=== PATIENT | male | born 1970 | race Hispanic/Latino ===

== ENCOUNTER → 2018-01-19 | Outpatient (CLI) | payer OTHER ==
[2018-01-19 13:11] LABS: CREATININE, SERUM 1.37 mg/dL (0.72-1.25)
--- NOTE | 2018-01-19 14:03 | Diagnostic Imaging Report ---
PROCEDURE: CT ABDOMEN AND PELVIS WITH CONTRAST TECHNIQUE: The abdomen and pelvis were scanned utilizing a multidetector helical scanner from the diaphragm to the lesser trochanter after the IV administration of 100 cc of Isovue 370 and the oral administration of water. Coronal and sagittal multiplanar reformations were obtained. COMPARISON: None. INDICATIONS: UPPER ABDOMINAL PAIN FINDINGS: LOWER THORAX: Mild cardiomegaly. Lung bases are clear.. HEPATOBILIARY: No focal hepatic lesions. No biliary ductal dilatation. Gallbladder is unremarkable. SPLEEN: No splenomegaly. Small splenule along the lower pole. PANCREAS: No focal masses or ductal dilatation. ADRENALS: No adrenal nodules. KIDNEYS/URETERS: No hydronephrosis, stones, or solid mass lesions. PELVIC ORGANS/BLADDER: Urinary bladder, prostate, and seminal vesicles appear normal. PERITONEUM / RETROPERITONEUM: No free air or fluid. LYMPH NODES: No pelvic sidewall, retroperitoneal, or mesenteric lymphadenopathy. VESSELS: The abdominal aorta, major branch vessels, and iliac arterial systems are well-visualized and patent. Right hepatic artery is replaced to the superior mesenteric artery. 2 right renal arteries and a single left renal artery. GI TRACT: The large bowel shows no evidence of distention or wall thickening. There are a few diverticula along the sigmoid colon without wall thickening or adjacent inflammatory change. The appendix is normal. Incidental note of a 9 mm lipoma in the fourth portion of the duodenum. No small bowel dilatation to suggest obstruction. BONES AND SOFT TISSUES: Small fat-containing left inguinal hernia. Small fat containing ventral umbilical hernia. No additional focal soft tissue abnormalities. No osseous destructive lesions. Multilevel degenerative disc changes and degenerative facet arthropathy of the thoracolumbar spine. 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 IMPRESSION: No acute intra-abdominal or pelvic CT abnormalities. Large bowel diverticulosis without evidence of diverticulitis. Incidental note of 9 mm lipoma in the fourth portion of the duodenum. No evidence of bowel obstruction. Dictated by: Lucio Chan M.D. on 01/19/2018 at 14:06 Electronically approved by: Lucio Chan M.D. on 01/19/2018 at 14:06
== END ==
LOC: CT 12:21
PROVIDERS: ATTEND Surgery
DX: K82.8 Other specified diseases of gallbladder (principal)
CPT/HCPCS: 36415; 74177; 82565; 84520

== ENCOUNTER → 2018-02-01 | Day surgery (SDC) | payer OTHER ==
[2018-01-29 16:25] LABS: BASOPHILS % 0.3 % (0.0-1.0); EOSINOPHILS # (AUTO) 0.2 (0.0-0.4); HEMATOCRIT 52.9 % (38.2-49.6); HEMOGLOBIN 18.4 g/dL (14.0-18.0); LYMPHOCYTES # (AUTO) 1.8 (1.0-3.2); LYMPHOCYTES % 17.7 % (18.0-39.1); MEAN CORPUSCULAR HEMOGLOBIN 29.7 pg (28-32); MEAN CORPUSCULAR HGB CONC 34.8 g/dL (31-35); MEAN CORPUSCULAR VOLUME 85.3 fL (81-99); MONOCYTES # (AUTO) 0.8 (0.2-0.8); MONOCYTES % 7.9 % (4.4-11.3); NEUTROPHILS # (AUTO) 7.3 (2.1-6.9); NEUTROPHILS % 71.6 % (38.7-80.0); PLATELET COUNT 247 x10e3/uL (140-360); RED CELL DISTRIBUTION WIDTH 12.3 % (11.7-14.4)
[2018-01-29 17:01] LABS: INR 1.58; PROTHROMBIN TIME 17.7 seconds (11.9-14.5)
[2018-01-29 17:06] LABS: ALBUMIN 3.8 g/dL (3.5-5.0); CALCIUM 9.7 mg/dL (8.4-10.2); CREATININE, SERUM 1.39 mg/dL (0.72-1.25)
[~2018-02-01] VITALS: Ht 170.2 cm; Wt 114.3 kg
[2018-02-01] VITALS (7 sets, daily range): BP systolic 105–162; BP diastolic 47–115
[~2018-02-01] MED LIST: ASPIR 8181 MG PO; BENZOCAINE 20% SPR 60 ML CAN ONE; COZAAR25 MG PO; DIGOXIN250 MCG PO; FENTANYL CITRATE/PF 100MCG/2 ML INJ ONE; HYDRALAZINE HCL25 MG PO; INSULIN REGULAR, HUMAN 100 UNIT/1 ML 3ML VIAL ONE; ISOSORBIDE MONO30 MG PO; LASIX40 MG PO; LIPITOR20 MG PO; METFORMIN HCL500 MG PO; MIDAZOLAM HCL 2 MG/2 ML VIAL ONE; PANTOPRAZOLE SO40 MG PO; PROPOFOL IV EMULSION 10 MG/ML 20 ML VIAL ONE; SPIRONOLACTONE25 MG PO; XARELTO20 MG PO
--- NOTE | 2018-02-01 15:34 | Cardiology Report ---
DATE OF STUDY: PROCEDURE: Transesophageal echocardiogram direct current cardioversion. REASON FOR PROCEDURE: Atrial fibrillation. PROCEDURE IN DETAIL: The risks and benefits of the procedure were explained to the patient. He was brought to the endoscopy suite in a fasting state after written informed consent was obtained. Moderate sedation was performed by anesthesia. JERSON was performed demonstrating no evidence of left atrial appendage thrombus or thrombus in the left atrium. The patient was confirmed to have taken his Xarelto as scheduled. The pads were applied in the anterior and posterior approach. One synchronized biphasic shock of 100 joules was given with successful zoroastrian of sinus rhythm with rare PACs. There were no immediate post procedure complications. Patient remained in sinus rhythm and was transferred to recovery. A 12-lead EKG was ordered. IMPRESSION: Successful direct current cardioversion with zoroastrian of sinus rhythm from atrial fibrillation with no immediate complications. Job#: [id number] AMNA
== END | disposition home or self-care (01) ==
LOC: OR 10:23
PROVIDERS: ATTEND Internal Medicine
DX: I48.91 Unspecified atrial fibrillation (principal); Z79.01 Long term (current) use of anticoagulants; I50.22 Chronic systolic (congestive) heart failure; E78.5 Hyperlipidemia, unspecified; K74.60 Unspecified cirrhosis of liver; E11.9 Type 2 diabetes mellitus without complications
CPT/HCPCS: 36415; 80053; 82948; 85025; 85610; 93005; 93307; 93312; 93325; J2250

== ENCOUNTER → 2018-05-30 | Day surgery (SDC) | payer OTHER ==
[~2018-05-30] VITALS: Ht 170.2 cm; Wt 114.3 kg
[2018-05-30] VITALS (8 sets, daily range): BP systolic 144–182; BP diastolic 85–148
[~2018-05-30] MED LIST changes: -BENZOCAINE 20% SPR 60 ML CAN ONE; +HEPARIN SOD (PORCINE) 1000 UNIT/ML 30ML ONE; +HEPARIN SOD/SOD CHLORIDE 2,000 ML ONE; -INSULIN REGULAR, HUMAN 100 UNIT/1 ML 3ML VIAL ONE; +IOPAMIDOL 370 MG/ML 200 ML INFUS..BTL INJ ONE; +LIDOCAINE HCL 2% LOCAL 20 ML VIAL ONE; +NITROGLYCERIN/D5W 200 MCG/ML 250 ML ONE; -PROPOFOL IV EMULSION 10 MG/ML 20 ML VIAL ONE; +SODIUM CHLORIDE 0.9% 1000ML 1,000 ML ONE; +VERAPAMIL HCL 2.5 MG/ML 2 ML VIAL ONE
[2018-05-30 07:52] LABS: BASOPHILS % 0.4 % (0.0-1.0); EOSINOPHILS # (AUTO) 0.4 (0.0-0.4); EOSINOPHILS % 4.2 % (0.0-6.0); HEMATOCRIT 52.8 % (38.2-49.6); HEMOGLOBIN 18.9 g/dL (14.0-18.0); LYMPHOCYTES % 24.2 % (18.0-39.1); MEAN CORPUSCULAR HEMOGLOBIN 31.6 pg (28-32); MEAN CORPUSCULAR HGB CONC 35.8 g/dL (31-35); MEAN CORPUSCULAR VOLUME 88.3 fL (81-99); MONOCYTES # (AUTO) 0.7 (0.2-0.8); MONOCYTES % 8.2 % (4.4-11.3); NEUTROPHILS # (AUTO) 5.3 (2.1-6.9); NEUTROPHILS % 62.6 % (38.7-80.0); PLATELET COUNT 251 x10e3/uL (140-360); RED BLOOD COUNT 5.98 x10e6/uL (4.3-5.7); RED CELL DISTRIBUTION WIDTH 12.6 % (11.7-14.4)
[2018-05-30 08:05] LABS: INR 0.9
[2018-05-30 08:10] LABS: ALANINE AMINOTRANSFERASE 27 IU/L (0-55); ALBUMIN 4.6 g/dL (3.5-5.0); ALBUMIN/GLOBULIN RATIO 1.1 (0.8-2.0); ALKALINE PHOSPHATASE 78 IU/L (40-150); ANION GAP 16.5 mmol/L (8-16); BLOOD UREA NITROGEN 12 mg/dL (7-26); BUN/CREATININE RATIO 12 (6-25); CALCIUM 9.8 mg/dL (8.4-10.2); CARBON DIOXIDE 26 mmol/L (22-29); CHLORIDE 98 mmol/L (98-107); CREATININE, SERUM 1.02 mg/dL (0.72-1.25); EST GLOMERULAR FILTRATION RATE > 60 ML/MIN (60-); GLUCOSE 278 mg/dL (74-118); POTASSIUM 3.5 mmol/L (3.5-5.1); SODIUM 137 mmol/L (136-145)
--- NOTE | 2018-05-30 11:36 | Operative Report ---
DATE OF PROCEDURE: May 30, 2018 INDICATIONS FOR THE PROCEDURE: Atypical chest pain and positive stress test. PREPROCEDURE ASSESSMENT: All the diagnostic data was reviewed prior to the procedure. The risks, the benefits, the alternatives of the different sedation methods were discussed with the patient. The patient was deemed to be an appropriate candidate for moderate sedation. Informed consent was obtained prior to the procedure after explaining the risks, the benefits, and the alternatives of the procedure with the patient. All questions were answered. PROCEDURE NOTE: The patient was brought to the cardiac catheterization laboratory in a fasting state. The right wrist was prepped and draped in a sterile fashion. A 6-Panamanian Slender sheath was inserted into the right radial artery using modified Seldinger technique. A 5-Panamanian WebVet diagnostic catheter was used to perform coronary angiography of the left and the right coronary arteries. Multiple orthogonal views were taken. Left heart catheterization was done with the same WebVet diagnostic catheter. All catheters were removed over a wire. Sheath was removed, and TR band was applied. The case ended without any complications. FINDINGS: Left main coronary artery was short, large caliber, no significant CAD. Left anterior descending artery was large caliber, goes to the apex. One large diagonal branch. No significant coronary artery disease. Left circumflex artery was a large, nondominant circ. Two large OM branches without significant coronary artery disease. RCA was a large, dominant RCA with medium-sized PDA and a very large PL branch without significant coronary artery disease. LV end-diastolic pressure was 19. SPECIMEN REMOVED: None. IMPLANTS AND GRAFTS: None. ESTIMATED BLOOD LOSS: 10 mL. COMPLICATIONS: None. FINAL RECOMMENDATIONS 1. Continue optimal medical therapy and risk factor control. 2. Follow up in the office with Dr. Saucedo in 2 weeks post procedure. Job#: [id number]
--- OUTSIDE RECORDS SUMMARY | 2018-06-05 12:30 | XMS REPORT ---
Author Author [facility] Address Unknown Phone Unavailable Care Team Providers Care Head Waiter/Waitress Banquet Name Role Phone Kimberly SOLITARIO Unavailable Unavailable Marjorie BUI Unavailable Unavailable NEELIMA AGUILERA Unavailable Unavailable Problems This patient has no known problems. Allergies, Adverse Reactions, Alerts This patient has no known allergies or adverse reactions. Medications This patient has no known medications. Encounters Start Date/Time End Date/Time Encounter Type Admission Type Attending [facility] Care Department Encounter ID 2017-04-18 00:00:00 2017-04-18 00:00:00 Outpatient [facility] [id number] 2017-03-31 00:00:00 2017-03-31 00:00:00 Outpatient [facility] [id number] 2017-02-28 00:00:00 2017-02-28 00:00:00 Outpatient [facility] [id number] 2017-02-22 09:57:19 2017-02-22 09:57:19 Outpatient [facility] [id number] 2017-02-20 00:00:00 2017-02-20 00:00:00 Outpatient [facility] [id number] Results Test Description Test Time Test Comments Text Results Atomic Results Result Comments JERSON COMPLETE 2018-02-01 15:09:00 [place] [address] Patient Name : CRYSTAL PINON MR #: [id number] : 1970 Age/Sex: 47/M Adm Physician : TANK SOLITARIO MD Admit Date : Location : OR Room/Bed : REPORT: Cardiology Report DATE OF STUDY: PROCEDURE: Transesophageal echocardiogram direct current cardioversion. REASON FOR PROCEDURE: Atrial fibrillation. PROCEDURE IN DETAIL: The risks and benefits of the procedure were explained to the patient. He was brought to the endoscopy suite in a fasting state after written informed consent was obtained. Moderate sedation was performed by anesthesia. JERSON was performed demonstrating no evidence of left atrial appendage thrombus or thrombus in the left atrium. The patient was confirmed to have taken his Xarelto as scheduled. The pads were applied in the anterior and posterior approach. One synchronized biphasic shock of 100 joules was given with successful cheondoism of sinus rhythm with rare PACs. There were no immediate post procedure complications. Patient remained in sinus rhythm and was transferred to recovery. A 12-lead EKG was ordered. IMPRESSION: Successful direct current cardioversion with cheondoism of sinus rhythm from atrial fibrillation with no immediate complications. Job#: [id number] RI Signature Date Dictated By: TANK SOLITARIO MD Transcribed By: EDS on 02/01/18 <Electronically signed by TANK SOLITARIO MD><<Signature on File>>02/18/18 1332 COPY TO: URINALYSIS W/ MICROSCOPIC 2017-12-27 11:18:00 COLOR (BEAKER) (test qksw=903) Yellow CLARITY (BEAKER) (test yztc=422) Clear SPECIFIC GRAVITY UA (BEAKER) (test qwtt=186) 1.027 1.001-1.035 PH UA (BEAKER) (test inmq=946) 6.0 5.0-8.0 PROTEIN UA (BEAKER) (test xona=104) 100 mg/dL Negative GLUCOSE UA (BEAKER) (test ptrs=402) >1000 mg/dL Negative KETONES UA (BEAKER) (test tsfp=008) Trace Negative BILIRUBIN UA (BEAKER) (test pzdi=540) Negative Negative BLOOD UA (BEAKER) (test slld=961) Negative Negative NITRITE UA (BEAKER) (test agpw=224) Negative Negative LEUKOCYTE ESTERASE UA (BEAKER) (test eqnn=090) Negative Negative UROBILINOGEN UA (BEAKER) (test tyng=637) 0.2 mg/dL 0.2-1.0 RBC UA (BEAKER) (test wjdd=353) 1 /HPF WBC UA (BEAKER) (test zqcl=719) 4 /HPF SQUAMOUS EPITHELIAL (BEAKER) (test uonz=603) 1 /HPF SOURCE(BEAKER) (test umdp=2407) Urine, Clean Catch TROPONIN [id number] 10:21:00* Test Item Value Reference Range Comments TROPONIN I (BEAKER) (test adul=613) 0.17 ng/mL 0.00-0.03 Troponin I (TnI) levels must be interpreted in the context of the presenting sym ptoms and the clinical findings. Elevated TnI levels indicate myocardial damage, but are not specific for ischemic heart disease. Elevated TnI levels are seen in patients with other cardiac conditions (including myocarditis and congestive h eart failure), and slight TnI elevations occur in patients with other conditions , including sepsis, renal failure, acidosis, acute neurological disease, and per sistent tachyarrhythmia.[id number] 10:13:00* Test Item Value Reference Range Comments MAGNESIUM (BEAKER) (test tkum=938) 1.8 mg/dL 1.6-2.6 Specimen moderately hemolyzed BASIC METABOLIC [id number] 10:13:00* Test Item Value Reference Range Comments SODIUM (BEAKER) (test sblp=871) 133 meq/L 136-145 POTASSIUM (BEAKER) (test isaa=082) 4.2 meq/L 3.5-5.1 Specimen moderately hemolyzed CHLORIDE (BEAKER) (test uhsd=263) 101 meq/L 98-107 CO2 (BEAKER) (test ahne=104) 21 meq/L 22-29 BLOOD UREA NITROGEN (BEAKER) (test hsgd=154) 17 mg/dL 7-21 CREATININE (BEAKER) (test ffkg=453) 1.24 mg/dL 0.57-1.25 Specimen moderately hemolyzed GLUCOSE RANDOM (BEAKER) (test kykn=669) 360 mg/dL 70-105 CALCIUM (BEAKER) (test ldbv=308) 9.0 mg/dL 8.4-10.2 EGFR (BEAKER) (test nrpt=7710) 62 mL/min/1.73 sq m INSUFFICIENT CLINICAL DATA TO CALCULATE ESTIMATED GFR. RAD, CHEST, 1 VIEW, NON [id number] 10:07:00Reason for exam:->sobShould this be performed at the bedside?->YesFINAL REPORT Chest 2 views AP 12/27/2017 10:07 AM CLINICAL HISTORY: sob COMPARISON: None available FINDINGS: The lungs are clear. Cardiomediastinal contours are within normal limits. The central pulmonary vasculature is not engorged. IMPRESSION: Unremarkable frontal chest radiograph. Signed: John Morrison Verified Date/Time: 12/27/2017 10:07:36 Reading Location: [facility] Radiology Reading Room B-TYPE NATRIURETIC FACTOR (BNP)2017-12-27 10:04:00* Test Item Value Reference Range Comments B-TYPE NATRIURETIC PEPTIDE (BEAKER) (test uknr=842) 235 pg/mL 0-100 CBC W/PLT COUNT & AUTO [id number] 09:44:00* Test Item Value Reference Range Comments WHITE BLOOD CELL COUNT (BEAKER) (test sbcf=237) 11.4 K/ L 3.5-10.5 RED BLOOD CELL COUNT (BEAKER) (test jsfn=112) 5.62 M/ L 4.63-6.08 HEMOGLOBIN (BEAKER) (test adza=704) 16.6 GM/DL 13.7-17.5 HEMATOCRIT (BEAKER) (test tjnj=753) 50.8 % 40.1-51.0 MEAN CORPUSCULAR VOLUME (BEAKER) (test johc=305) 90.4 fL 79.0-92.2 MEAN CORPUSCULAR HEMOGLOBIN (BEAKER) (test vgcb=221) 29.5 pg 25.7-32.2 MEAN CORPUSCULAR HEMOGLOBIN CONC (BEAKER) (test blau=402) 32.7 GM/DL 32.3-36.5 RED CELL DISTRIBUTION WIDTH (BEAKER) (test ibrx=674) 13.2 % 11.6-14.4 PLATELET COUNT (BEAKER) (test jkuy=008) 262 K/CU MM 150-450 MEAN PLATELET VOLUME (BEAKER) (test vxot=523) 11.9 fL 9.4-12.4 NUCLEATED RED BLOOD CELLS (BEAKER) (test accy=136) 0 /100 WBC 0-0 NEUTROPHILS RELATIVE PERCENT (BEAKER) (test qmvk=105) 80 % LYMPHOCYTES RELATIVE PERCENT (BEAKER) (test sybr=727) 10 % MONOCYTES RELATIVE PERCENT (BEAKER) (test kqgk=619) 9 % EOSINOPHILS RELATIVE PERCENT (BEAKER) (test fism=549) 1 % BASOPHILS RELATIVE PERCENT (BEAKER) (test gmji=438) 0 % NEUTROPHILS ABSOLUTE COUNT (BEAKER) (test irmh=451) 9.09 K/ L 1.78-5.38 LYMPHOCYTES ABSOLUTE COUNT (BEAKER) (test vluc=518) 1.09 K/ L 1.32-3.57 MONOCYTES ABSOLUTE COUNT (BEAKER) (test qhgg=786) 1.04 K/ L 0.30-0.82 EOSINOPHILS ABSOLUTE COUNT (BEAKER) (test wyrl=370) 0.07 K/ L 0.04-0.54 BASOPHILS ABSOLUTE COUNT (BEAKER) (test ebbe=446) 0.03 K/ L 0.01-0.08 IMMATURE GRANULOCYTES-RELATIVE PERCENT (BEAKER) (test inyp=6618) 1 % 0-1 CT ABDOMEN/PELVIS W [place] [address] Patient Name: CRYSTAL PINON MR #: [id number] : 1970 Age/Sex: 47/M Req #: [id number] Adm Physician: Ordered by: SKY BUI MD Report #: [id number] Location: CT Room/Bed: Procedure: CT/CT ABDOMEN/PELVIS W Exam D ate: 01/19/18 Exam Time: 1325 REPORT STATUS: Si gned PROCEDURE: CT ABDOMEN AND PELVIS WITH CONTRAST TECHNIQUE: The a bdomen and pelvis were scanned utilizing a multidetector helical scanner from the diaphragm to the lesser trochanter after the IV administration of 100 cc of Isovue 370 and the oral administration of water. Coronal and sagittal mul tiplanar reformations were obtained. COMPARISON: None. INDICATIONS: UPPER ABDOMINAL PAIN FINDINGS: LOWER THORAX: Mild cardiomegaly. Lung b ases are clear.. HEPATOBILIARY: No focal hepatic lesions. No biliary duct al dilatation. Gallbladder is unremarkable. SPLEEN: No splenomegaly. Small splenule along the lower pole. PANCREAS: No focal masses or ductal dilatation. ADRENALS: No adrenal nodules. KIDNEYS/URETERS: No hydronephrosis, stone s, or solid mass lesions. PELVIC ORGANS/BLADDER: Urinary bladder, prostate, an d seminal vesicles appear normal. PERITONEUM / RETROPERITONEUM: No free air or fluid. LYMPH NODES: No pelvic sidewall, retroperitoneal, or mesenteric lymphadenopathy. VESSELS: The abdominal aorta, major branch vessels, and i liac arterial systems are well-visualized and patent. Right hepatic artery is replaced to the superior mesenteric artery. 2 right renal arteries and a single left renal artery. GI TRACT: The large bowel shows no evidence of d istention or wall thickening. There are a few diverticula along the sigmoid c olon without wall thickening or adjacent inflammatory change. The appendix is normal. Incidental note of a 9 mm lipoma in the fourth portion of the duo denum. No small bowel dilatation to suggest obstruction. BONES AND SOFT TI SSUES: Small fat-containing left inguinal hernia. Small fat containing ventra l umbilical hernia. No additional focal soft tissue abnormalities. No osseous destructive lesions. Multilevel degenerative disc changes and degenerative f acet arthropathy of the thoracolumbar spine. 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 IMPRESSION: No acute int ra-abdominal or pelvic CT abnormalities. Large bowel diverticulosis withou t evidence of diverticulitis. Incidental note of 9 mm lipoma in the fourth portion of the duodenum. No evidence of bowel obstruction. Dictated b y: Bree Luevano M.D. on 01/19/2018 at 14:06 Electronically approved by: Ander Luevano M.D. on 01/19/2018 at 14:06 Dictated By: BREE LUEVANO MD [id number] Transcribed By: KILEY on 01/19/18 1406 COPY TO: SKY BUI MD
--- OUTSIDE RECORDS SUMMARY | 2018-06-05 12:30 | XMS REPORT | Clinical Summary ---
Author Author [facility] Address Unknown Phone Unavailable Care Team Providers Care Academic Support Director Name Role Phone PCP Unavailable Allergies No Known Allergies Current Medications Prescription Sig. Disp. Refills Start End Date Status Date furosemide (LASIX) 40 MG Take 40 mg by mouth Active tablet daily. losartan (COZAAR) 100 MG Take 100 mg by mouth Active tablet daily. carvedilol (COREG) 12.5 Take 12.5 mg by mouth 2 Active MG tablet (two) times daily with breakfast and dinner. hydrALAZINE (APRESOLINE) Take 25 mg by mouth 3 Active 25 MG tablet (three) times daily. spironolactone Take 25 mg by mouth Active (ALDACTONE) 25 MG tablet daily. atorvastatin (LIPITOR) 20 Take 60 mg by mouth Active MG tablet daily. rivaroxaban (XARELTO) 20 Take by mouth daily with Active mg Tab tablet dinner. Active Problems Not on file Encounters Date Type Specialty Care Team Description 12/27/2017 Emergency Emergency Medicine Lindsey Aguilera MD Shortness of breath (Primary Dx);Atrial fibrillation with RVR (HCC);Hypertension, uncontrolled;History of CHF (congestive heart failure);Hyperglycemia;Hi story of diabetes mellitus 12/27/2017 Orders Only General Internal Medicine after 05/29/2017 Social History Tobacco Use Types Packs/Day Years Used Date Never Assessed Sex Assigned at Date Recorded Not on file Last Filed Vital Signs Vital Sign Reading Time Taken Blood Pressure 142/98 12/27/2017 11:55 AM CDT Pulse 94 12/27/2017 11:55 AM CDT Temperature 37.6 C (99.6 F) 12/27/2017 9:24 AM CDT Respiratory Rate 18 12/27/2017 11:55 AM CDT Oxygen Saturation 95% 12/27/2017 11:55 AM CDT Inhaled Oxygen - - Concentration Weight 117.9 kg (260 lb) 12/27/2017 9:24 AM CDT Height 165.1 cm (5' 5") 12/27/2017 9:24 AM CDT Body Mass Index 43.27 12/27/2017 9:24 AM CDT Plan of Treatment Not on file Results * RHYTHM STRIP - SCAN (12/28/2017 1:00 PM) * ED ECG Interpretation (12/27/2017 1:58 PM) Narrative Lindsey Aguilera MD 12/27/20171:58 PM ECG/EKG Interpretation Date/Time: 12/27/2017 9:35 AM Performed by: LINDSEY AGUILERA Authorized by: LINDSEY AGUILERA The ECG was interpreted by ED physician. There was no previous ECG available for comparison. The ECG is interpreted as atrial fibrillation. Rate is tachycardic. Flournoy is left. Clinical Impression: dysrhythmia - atrialECG reviewed and does not meet STEMI criteria. Patient tolerance: Patient tolerated the procedure well with no immediate complications * Urinalysis w/Microscopic (12/27/2017 11:04 AM) Component Value Ref Range Color, UA Yellow Clarity, UA Clear Specific [place], UA 1.027 1.001 - 1.035 pH, UA 6.0 5.0 - 8.0 Protein, UA 100 mg/dL (A) Negative Glucose, UA >1000 mg/dL (A) Negative Ketones, UA Trace (A) Negative Bilirubin, UA Negative Negative Blood, UA Negative Negative Nitrite, UA Negative Negative Leukocytes, UA Negative Negative Urobilinogen, UA 0.2 0.2 - 1.0 mg/dL RBC, UA 1 /HPF WBC, UA 4 /HPF Squam Epithel, UA 1 /HPF Specimen Source Urine, Clean Catch Specimen Performing Laboratory Urine - Urine, Clean [facility] Catch [address] [place] [id number] * XR chest 1 view portable / bedside (12/27/2017 10:04 AM) Specimen Performing Laboratory GE RIS Narrative FINAL REPORT Chest 2 views AP 12/27/2017 10:07 AM CLINICAL HISTORY: sob COMPARISON: None available FINDINGS: The lungs are clear. Cardiomediastinal contours are within normal limits. The central pulmonary vasculature is not engorged. IMPRESSION: Unremarkable frontal chest radiograph. Signed: John Morrison MD Report Verified Date/Time:12/27/2017 10:07:36 Reading Location: [facility] Radiology Reading Room Procedure Note Interface, External Ris In - 12/27/2017 10:14 AM CDT FINAL REPORT Chest 2 views AP 12/27/2017 10:07 AM CLINICAL HISTORY: sob COMPARISON: None available FINDINGS: The lungs are clear. Cardiomediastinal contours are within normal limits. The central pulmonary vasculature is not engorged. IMPRESSION: Unremarkable frontal chest radiograph. Signed: John Morrison MD Report Verified Date/Time: 12/27/2017 10:07:36 Reading Location: [facility] Radiology Reading Room * ECG 12 lead (12/27/2017 9:30 AM) Specimen Performing Laboratory GE MUSE Narrative Ventricular Rate 106 BPM Atrial Rate 108 BPM QRS Duration 92 ms Q-T Interval 368 ms QTC Calculation(Bazett) 488 ms R Flournoy -51 degrees T Flournoy 26 degrees Atrial fibrillation with rapid ventricular response with premature ventricular or aberrantly conducted complexes Left axis deviation Abnormal ECG No previous ECGs available Confirmed by Solomon ANDREA BASANT ([id number]) on 12/28/2017 8:25:26 AM Procedure Note Interface, External Ris In - 12/28/2017 8:25 AM CDT Ventricular Rate 106 BPM Atrial Rate 108 BPM QRS Duration 92 ms Q-T Interval 368 ms QTC Calculation(Bazett) 488 ms R Flournoy -51 degrees T Fl[place] 26 degrees Atrial fibrillation with rapid ventricular response with premature ventricular or aberrantly conducted complexes Left axis deviation Abnormal ECG No previous ECGs available Confirmed by Solomon ANDREA BASANT ([id number]) on 12/28/2017 8:25:26 AM * CBC with platelet count + automated diff (12/27/2017 9:27 AM) Component Value Ref Range WBC 11.4 (H) 3.5 - 10.5 K/L RBC 5.62 4.63 - 6.08 M/L Hemoglobin 16.6 13.7 - 17.5 GM/DL Hematocrit 50.8 40.1 - 51.0 % MCV 90.4 79.0 - 92.2 fL MCH 29.5 25.7 - 32.2 pg MCHC 32.7 32.3 - 36.5 GM/DL RDW 13.2 11.6 - 14.4 % Platelets 262 150 - 450 K/CU MM MPV 11.9 9.4 - 12.4 fL nRBC 0 0 - 0 /100 WBC % Neutros 80 % % Lymphs 10 % % Monos 9 % % Eos 1 % % Baso 0 % # Neutros 9.09 (H) 1.78 - 5.38 K/L # Lymphs 1.09 (L) 1.32 - 3.57 K/L # Monos 1.04 (H) 0.30 - 0.82 K/L # Eos 0.07 0.04 - 0.54 K/L # Baso 0.03 0.01 - 0.08 K/L Immature 1 0 - 1 % Granulocytes-Relative Specimen Performing Laboratory Blood - Line, [place] [address] * Troponin I (12/27/2017 9:27 AM) Component Value Ref Range Troponin I 0.17 (H) 0.00 - 0.03 ng/mL Specimen Performing Laboratory Blood - Line, [place] [address] Narrative Troponin I (TnI) levels must be interpreted in the context of the presenting symptoms and the clinical findings. Elevated TnI levels indicate myocardial damage, but are not specific for ischemic heart disease. Elevated TnI levels are seen in patients with other cardiac conditions (including myocarditis and congestive heart failure), and slight TnI elevations occur in patients with other conditions, including sepsis, renal failure, acidosis, acute neurological disease, and persistent tachyarrhythmia. * CBC with platelet count + automated diff (12/27/2017 9:27 AM) Specimen Performing Laboratory Blood Narrative The following orders were created for panel order CBC with platelet count + automated diff. Procedure Abnormality Status --------- ------ CBC with platelet count ...[[id number]]AbnormalFinal result Please view results for these tests on the individual orders. * B-type Natriuretic Factor (BNP) (12/27/2017 9:27 AM) Component Value Ref Range BNP 235 (H) 0 - 100 pg/mL Specimen Performing Laboratory Blood - Line, [place] [address] * Magnesium (12/27/2017 9:27 AM) Component Value Ref Range Magnesium 1.8Comment: Specimen moderately hemolyzed 1.6 - 2.6 mg/dL Specimen Performing Laboratory Blood - Line, [place] [address] * Basic Metabolic Panel (12/27/2017 9:27 AM) Component Value Ref Range Sodium 133 (L) 136 - 145 meq/L Potassium 4.2Comment: Specimen moderately hemolyzed 3.5 - 5.1 meq/L Chloride 101 98 - 107 meq/L CO2 21 (L) 22 - 29 meq/L BUN 17 7 - 21 mg/dL Creatinine 1.24Comment: Specimen moderately hemolyzed 0.57 - 1.25 mg/dL Glucose 360 (H) 70 - 105 mg/dL Calcium 9.0 8.4 - 10.2 mg/dL EGFR 62Comment: INSUFFICIENT CLINICAL DATA TO CALCULATE mL/min/1.73 sq m ESTIMATED GFR. Specimen Performing Laboratory Blood - Line, [place] [address] after 05/29/2017
== END | disposition home or self-care (01) ==
LOC: CATH LAB 07:10
PROVIDERS: ATTEND Internal Medicine
DX: R07.89 Other chest pain (principal); R94.39 Abnormal result of other cardiovascular function study; I11.0 Hypertensive heart disease with heart failure; I50.22 Chronic systolic (congestive) heart failure; I48.91 Unspecified atrial fibrillation; E78.5 Hyperlipidemia, unspecified; K74.60 Unspecified cirrhosis of liver; Z79.82 Long term (current) use of aspirin; Z79.02 Long term (current) use of antithrombotics/antiplatelets; Z79.84 Long term (current) use of oral hypoglycemic drugs; Z82.49 Family history of ischemic heart disease and other diseases of the circulatory system
CPT/HCPCS: 36415; 80053; 85025; 85610; 93458; J1644; J2001; J2250; J7030; Q9967

== ENCOUNTER → 2018-11-22 | Day surgery (SDC) | payer OTHER ==
[2018-11-21 14:55] LABS: BASOPHILS % 0.4 % (0.0-1.0); EOSINOPHILS # (AUTO) 0.2 (0.0-0.4); EOSINOPHILS % 1.7 % (0.0-6.0); HEMATOCRIT 44.8 % (38.2-49.6); HEMOGLOBIN 15.4 g/dL (14.0-18.0); LYMPHOCYTES # (AUTO) 1.3 (1.0-3.2); LYMPHOCYTES % 14.7 % (18.0-39.1); MEAN CORPUSCULAR HEMOGLOBIN 29.4 pg (28-32); MEAN CORPUSCULAR HGB CONC 34.4 g/dL (31-35); MEAN CORPUSCULAR VOLUME 85.7 fL (81-99); MONOCYTES # (AUTO) 0.6 (0.2-0.8); MONOCYTES % 7.2 % (4.4-11.3); NEUTROPHILS # (AUTO) 6.7 (2.1-6.9); NEUTROPHILS % 75.6 % (38.7-80.0); PLATELET COUNT 245 x10e3/uL (140-360); RED BLOOD COUNT 5.23 x10e6/uL (4.3-5.7); RED CELL DISTRIBUTION WIDTH 13.4 % (11.7-14.4)
[2018-11-21 15:14] LABS: ALANINE AMINOTRANSFERASE 83 IU/L (0-55); ALBUMIN 3.1 g/dL (3.5-5.0); ALKALINE PHOSPHATASE 105 IU/L (40-150); BLOOD UREA NITROGEN 15 mg/dL (7-26); BUN/CREATININE RATIO 15 (6-25); CALCIUM 8.7 mg/dL (8.4-10.2); CARBON DIOXIDE 29 mmol/L (22-29); CHLORIDE 97 mmol/L (98-107); CREATININE, SERUM 1.03 mg/dL (0.72-1.25); EST GLOMERULAR FILTRATION RATE > 60 ML/MIN (60-); GLUCOSE 313 mg/dL (74-118); SODIUM 134 mmol/L (136-145)
[2018-11-22] VITALS (11 sets, daily range): BP systolic 128–144; BP diastolic 77–110
[~2018-11-22] MED LIST changes: +CARTIA XT120 MG PO; +CARVEDILOL 12.5 MG TAB PO ONE; +DIGOXIN125 MCG PO; +FUROSEMIDE INJ 10 MG/ML 4 ML VIAL ONE; -HEPARIN SOD (PORCINE) 1000 UNIT/ML 30ML ONE; +LOSARTAN POTAS100 MG PO; -NITROGLYCERIN/D5W 200 MCG/ML 250 ML ONE; +POTASSIUM CHLORIDE 20 MEQ TAB CR PO ONE
--- OUTSIDE RECORDS SUMMARY | 2018-11-22 09:25 | XMS REPORT | Clinical Summary ---
Author Author [facility] Address Unknown Phone Unavailable Care Team Providers Care Medicine Aide Name Role Phone Alan Case PCP Allergies No Known Allergies Medications End Date Status Medication Sig Dispensed Refills Start Date Active furosemide (LASIX) 40 MG Take 40 mg by 0 tablet mouth daily. Active losartan (COZAAR) 100 MG Take 100 mg 0 tablet by mouth daily. Active carvedilol (COREG) 12.5 Take 12.5 mg 0 MG tablet by mouth 2 (two) times daily with breakfast and dinner. Active hydrALAZINE (APRESOLINE) Take 25 mg by 0 25 MG tablet mouth 3 (three) times daily. Active spironolactone Take 25 mg by 0 (ALDACTONE) 25 MG tablet mouth daily. Active atorvastatin (LIPITOR) 20 Take 60 mg by 0 MG tablet mouth daily. Active rivaroxaban (XARELTO) 20 Take by mouth 0 mg Tab tablet daily with dinner. Active Problems Not on file Encounters Care Team Description Date Type Specialty Lindsey Aguilera MD Shortness of breath (Primary Dx); Atrial fibrillation with RVR (HCC); Hypertension, uncontrolled; History of CHF (congestive heart failure); Hyperglycemia; History of diabetes mellitus 12/27/2017 Emergency Emergency Medicine 12/27/2017 Orders Only General Internal Medicine after 11/21/2017 Social History Date Tobacco Use Types Packs/Day Years Used Never Assessed Sex Assigned at Date Recorded Not on file Industry Job Start Date Occupation Not on file Not on file Not on file Travel End Travel History Travel Start No recent travel history available. Last Filed Vital Signs Time Taken Vital Sign Reading 12/27/2017 11:55 AM CDT Blood Pressure 142/98 12/27/2017 11:55 AM CDT Pulse 94 12/27/2017 9:24 AM CDT Temperature 37.6 C (99.6 F) 12/27/2017 11:55 AM CDT Respiratory Rate 18 12/27/2017 11:55 AM CDT Oxygen Saturation 95% - Inhaled Oxygen - Concentration 12/27/2017 9:24 AM CDT Weight 117.9 kg (260 lb) 12/27/2017 9:24 AM CDT Height 165.1 cm (5' 5") 12/27/2017 9:24 AM CDT Body Mass Index 43.27 Plan of Treatment Not on file Procedures Comments Procedure Name Priority Date/Time Associated Diagnosis RHYTHM STRIP - SCAN 12/28/2017 1:00 PM CDT ED ECG INTERPRETATION Routine 12/27/2017 1:58 PM CDT URINALYSIS W/ MICROSCOPIC STAT 12/27/2017 11:04 AM CDT XR CHEST 1 VIEW STAT 12/27/2017 PORTABLE/BEDSIDE 10:04 AM CDT ECG 12-LEAD Routine 12/27/2017 9:30 AM CDT Procedure Note - Interface, External Ris In - 12/27/2017 2:24 PM CDT Ventricula r Rate 106 BPM Atrial Rate 108 BPM QRS Duration 92 ms Q-T Interval 368 ms QTC Calculatio n(Bazett) 488 ms R [place] -51 degrees T [place] 26 degrees Atrial fibrillati on with rapid ventricula r response with premature ventricula r or aberrantly conducted complexes Left axis deviation Abnormal ECG No previous ECGs available ECG 12-LEAD STAT 12/27/2017 9:30 AM CDT CBC W/PLT COUNT & AUTO STAT 12/27/2017 DIFFERENTIAL 9:27 AM CDT CBC W/PLT COUNT & AUTO STAT 12/27/2017 DIFFERENTIAL 9:27 AM CDT TROPONIN I STAT 12/27/2017 9:27 AM CDT B-TYPE NATRIURETIC FACTOR STAT 12/27/2017 (BNP) 9:27 AM CDT MAGNESIUM STAT 12/27/2017 9:27 AM CDT BASIC METABOLIC PANEL (7) STAT 12/27/2017 9:27 AM CDT after 11/21/2017 Results * RHYTHM STRIP - SCAN (12/28/2017 1:00 PM CDT) Narrative Performed At * ED ECG Interpretation (12/27/2017 1:58 PM CDT) Narrative Performed At Lindsey Aguilera MD 12/27/20171:58 PM ECG/EKG Interpretation Date/Time: 12/27/2017 9:35 AM Performed by: LINDSEY AGUILERA Authorized by: LINDSEY AGUILERA The ECG was interpreted by ED physician. There was no previous ECG available for comparison. The ECG is interpreted as atrial fibrillation. Rate is tachycardic. [place] is left. Clinical Impression: dysrhythmia - atrialECG reviewed and does not meet STEMI criteria. Patient tolerance: Patient tolerated the procedure well with no immediate complications * Urinalysis w/Microscopic (12/27/2017 11:04 AM CDT) Color, UA Yellow [facility] Clarity, UA Clear [facility] Specific [place], UA 1.027 1.001 - 1.035 [facility] pH, UA 6.0 5.0 - 8.0 [facility] Protein, UA 100 mg/dL (A) Negative [facility] Glucose, UA >1000 mg/dL (A) Negative [facility] Ketones, UA Trace (A) Negative [facility] Bilirubin, UA Negative Negative [facility] Blood, UA Negative Negative [facility] Nitrite, UA Negative Negative [facility] Leukocytes, UA Negative Negative [facility] Urobilinogen, UA 0.2 0.2 - 1.0 mg/dL [facility] RBC, UA 1 /HPF [facility] WBC, UA 4 /HPF [facility] Squam Epithel, UA 1 /HPF [facility] Specimen Source Urine, Clean Catch [facility] Specimen Urine - Urine, Clean Catch Performing Organization Address City/State/Zipcode Phone Number [facility] [address] [phone] [facility] * XR chest 1 view portable / bedside (12/27/2017 10:04 AM CDT) Narrative Performed At FINAL REPORT [facility] Chest 2 views AP 12/27/2017 10:07 AM CLINICAL HISTORY: sob COMPARISON: None available FINDINGS: The lungs are clear. Cardiomediastinal contours are within normal limits. The central pulmonary vasculature is not engorged. IMPRESSION: Unremarkable frontal chest radiograph. Signed: John Morrison MD Report Verified Date/Time:12/27/2017 10:07:36 Reading Location: [facility] Radiology Reading Room Procedure Note Interface, External Ris In - 12/27/2017 10:14 AM CDT FINAL REPORT Chest 2 views AP 12/27/2017 10:07 AM CLINICAL HISTORY: sob COMPARISON: None available FINDINGS: The lungs are clear. Cardiomediastinal contours are within normal limits. The central pulmonary vasculature is not engorged. IMPRESSION: Unremarkable frontal chest radiograph. Signed: John Morrison MD Report Verified Date/Time: 12/27/2017 10:07:36 Reading Location: [facility] Radiology Reading Room Performing Organization Address City/State/Zipcode Phone Number [facility] * ECG 12 lead (12/27/2017 9:30 AM CDT) Narrative Performed At Ventricular Rate 106 BPM [facility] Atrial Rate 108 BPM QRS Duration 92 ms Q-T Interval 368 ms QTC Calculation(Bazett) 488 ms R [place] -51 degrees T [place] 26 degrees Atrial fibrillation with rapid ventricular response with premature ventricular or aberrantly conducted complexes Left axis deviation Abnormal ECG No previous ECGs available Confirmed by EMRE, M.MARLON Phillips ([id number]) on 12/28/2017 8:25:26 AM Procedure Note Interface, External Ris In - 12/28/2017 8:25 AM CDT Ventricular Rate 106 BPM Atrial Rate 108 BPM QRS Duration 92 ms Q-T Interval 368 ms QTC Calculation(Bazett) 488 ms R [place] -51 degrees T [place] 26 degrees Atrial fibrillation with rapid ventricular response with premature ventricular or aberrantly conducted complexes Left axis deviation Abnormal ECG No previous ECGs available Confirmed by Solomon ANDREA BASANT ([id number]) on 12/28/2017 8:25:26 AM Performing Organization Address City/State/Zipcode Phone Number [facility] * CBC with platelet count + automated diff (12/27/2017 9:27 AM CDT) WBC 11.4 (H) 3.5 - 10.5 K/L [facility] RBC 5.62 4.63 - 6.08 M/L [facility] Hemoglobin 16.6 13.7 - 17.5 GM/DL [facility] Hematocrit 50.8 40.1 - 51.0 % [facility] MCV 90.4 79.0 - 92.2 fL [facility] MCH 29.5 25.7 - 32.2 pg [facility] MCHC 32.7 32.3 - 36.5 GM/DL [facility] RDW 13.2 11.6 - 14.4 % [facility] Platelets 262 150 - 450 K/CU MM [facility] MPV 11.9 9.4 - 12.4 fL [facility] nRBC 0 0 - 0 /100 WBC [facility] % Neutros 80 % [facility] % Lymphs 10 % [facility] % Monos 9 % [facility] % Eos 1 % [facility] % Baso 0 % [facility] # Neutros 9.09 (H) 1.78 - 5.38 K/L [facility] # Lymphs 1.09 (L) 1.32 - 3.57 K/L [facility] # Monos 1.04 (H) 0.30 - 0.82 K/L [facility] # Eos 0.07 0.04 - 0.54 K/L [facility] # Baso 0.03 0.01 - 0.08 K/L [facility] Immature 1 0 - 1 % [facility] Granulocytes-[facility] Specimen Blood - Line, Venous Performing Organization Address City/[facility] [place] [address] [facility] * Troponin I (12/27/2017 9:27 AM CDT) Troponin I 0.17 (H) 0.00 - 0.03 ng/mL [facility] Specimen Blood - Line, Venous Narrative Performed At Troponin I (TnI) levels must be interpreted in the context of the presenting [facility] symptoms and the clinical findings. Elevated TnI levels indicate myocardial [facility] damage, but are not specific for ischemic heart disease. Elevated TnI levels are seen in patients with other cardiac conditions (including myocarditis and congestive heart failure), and slight TnI elevations occur in patients with other conditions, including sepsis, renal failure, acidosis, acute neurological disease, and persistent tachyarrhythmia. Performing Organization Address City/State/Zipcode Phone Number [address] [phone] [facility] * B-type Natriuretic Factor (BNP) (12/27/2017 9:27 AM CDT) BNP 235 (H) 0 - 100 pg/mL [facility] Specimen Blood - Line, Venous Performing Organization Address City/[facility]/Zipcode Phone Number [address] [address] [facility] * Magnesium (12/27/2017 9:27 AM CDT) Magnesium 1.8Comment: Specimen 1.6 - 2.6 mg/dL [facility] moderately hemolyzed [facility] Specimen Blood - Line, Venous Performing Organization Address City/[facility] Phone Number [facility] [address] [place] [address] [facility] * Basic Metabolic Panel (12/27/2017 9:27 AM CDT) Sodium 133 (L) 136 - 145 meq/L [facility] Potassium 4.2Comment: Specimen 3.5 - 5.1 meq/L [facility] moderately hemolyzed [facility] Chloride 101 98 - 107 meq/L [facility] CO2 21 (L) 22 - 29 meq/L [facility] BUN 17 7 - 21 mg/dL [facility] Creatinine 1.24Comment: Specimen 0.57 - 1.25 mg/dL [facility] moderately hemolyzed [facility] Glucose 360 (H) 70 - 105 mg/dL [facility] Calcium 9.0 8.4 - 10.2 mg/dL [facility] EGFR 62Comment: INSUFFICIENT mL/min/1.73 sq m [facility] CLINICAL DATA TO CALCULATE [facility] ESTIMATED GFR. Specimen Blood - Line, Venous Performing Organization Address City/[facility]/Zipcode Phone Number [facility] [address] [place] [address] [facility] after 11/21/2017 Insurance Payer Benefit Subscriber ID Type Phone Address Plan / Group [employer] - MGD CARE [employer] xxxxxxxxxxx HMO/POS HMO/POS/OP EN ACCESS
--- OUTSIDE RECORDS SUMMARY | 2018-11-22 09:25 | XMS REPORT | Clinical Summary ---
Author Author [facility] Organization [facility] Address Unknown Phone Unavailable Care Team Providers Care Cross Tie Maker Name Role Phone Asked, No Pcp PCP Unavailable Allergies No Known Allergies Medications End Date Status Medication Sig Dispensed Refills Start Date Active losartan (COZAAR) 100 MG Take 100 mg 0 tablet by mouth daily. Active atorvastatin (LIPITOR) 40 Take 40 mg by 0 MG tablet mouth nightly. Active aspirin (ECOTRIN) 81 MG Take 81 mg by 0 enteric coated tablet mouth daily. Active furosemide (LASIX) 40 mg Take 40 mg by 0 tablet mouth daily. Active spironolactone Take 50 mg by 0 (ALDACTONE) 50 MG tablet mouth daily. Active hydrALAZINE (APRESOLINE) Take 100 mg 0 25 MG tablet by mouth 2 (two) times a day. Active isosorbide mononitrate Take 60 mg by 0 (IMDUR) 60 MG 24 hr mouth daily. tablet Active potassium 99 mg tablet Take 1 tablet 0 by mouth daily. Active digOXIN (LANOXIN) 125 mcg Take 125 mcg 0 tablet by mouth daily. Active rivaroxaban (XARELTO) 20 Take 20 mg by 0 mg tablet mouth daily. @ 5 PM Active metFORMIN (GLUCOPHAGE) Take 500 mg 0 500 mg tablet by mouth daily with breakfast. Active carvedilol (COREG) 12.5 Take 12.5 mg 0 MG tablet by mouth 2 (two) times a day with meals. 11/16/2018 Discontinued diltiazem CD (CARTIA XT) Take 1 0 120 MG 24 hr capsule capsule by mouth daily. Active Problems Problem Noted Date Atrial fibrillation with RVR 11/13/2018 Constipation 10/31/2018 Heart failure A-fib HLD (hyperlipidemia) Hypertension Encounters Care Team Description Date Type Specialty Narciso Dennis MD Badam, Manjulatha, MD Ogbonna, Martina C., MD Atrial fibrillation with RVR (HCC) (Primary Dx); Type 2 diabetes mellitus with hyperglycemia, without long-term current use of insulin (HCC); Acute on chronic congestive heart failure, unspecified heart failure type (HCC); Hypomagnesemia; Constipation, unspecified constipation type 11/13/2018 [facility] General Internal Medicine - Encounter 11/16/2018 Bird Rocha RN 11/13/2018 Orders Only Intensive Care Mary Collier MA 11/13/2018 Telephone General Surgery Morales Eric Jr., MD Pain of upper abdomen 11/09/2018 Hospital Radiology Encounter Morales Eric Jr., MD Pain of upper abdomen 10/31/2018 Lab Lab Morales Eric Jr., MD Pain of upper abdomen (Primary Dx) 10/31/2018 Office Visit General Surgery after 11/21/2017 Social History Date Tobacco Use Types Packs/Day Years Used Never Smoker Smokeless Tobacco: Never Used Alcohol Use Drinks/Week oz/Week Comments No Alcohol Habits Answer Date Recorded How often do you have a drink containing alcohol? Never 11/13/2018 How many drinks containing alcohol do you have on Not asked a typical day when you are drinking? How often do you have six or more drinks on one Not asked occasion? Sex Assigned at Date Recorded Not on file Industry Job Start Date Occupation Not on file Not on file Not on file Travel End Travel History Travel Start No recent travel history available. Last Filed Vital Signs Time Taken Vital Sign Reading 11/16/2018 9:06 AM CDT Blood Pressure 146/109 11/16/2018 9:06 AM CDT Pulse 62 11/16/2018 9:06 AM CDT Temperature 36.3 C (97.4 F) 11/16/2018 9:06 AM CDT Respiratory Rate 16 11/16/2018 9:06 AM CDT Oxygen Saturation 96% - Inhaled Oxygen - Concentration 11/16/2018 6:19 AM CDT Weight 120 kg (265 lb 1.6 oz) 11/13/2018 9:37 AM CDT Height 175.3 cm (5' 9") 11/16/2018 6:19 AM CDT Body Mass Index 39.15 Plan of Treatment Health Maintenance Due Date Last Done Comments DIABETIC RETINAL EYE EXAM 1970 DIABETIC FOOT EXAM 1980 URINE MICROALBUMIN 1980 INFLUENZA VACCINE 03/21/2019 08/21/2016 Procedures Comments Procedure Name Priority Date/Time Associated Diagnosis POC GLUCOSE Routine 11/16/2018 9:10 AM CDT ESTIMATED GFR Routine 11/16/2018 3:37 AM CDT PHOSPHORUS LEVEL Routine 11/16/2018 3:37 AM CDT MAGNESIUM LEVEL Routine 11/16/2018 3:37 AM CDT COMPREHENSIVE METABOLIC Routine 11/16/2018 PANEL 3:37 AM CDT HC COMPLETE BLD COUNT Routine 11/16/2018 W/AUTO DIFF 3:37 AM CDT POC GLUCOSE Routine 11/15/2018 9:48 PM CDT POC GLUCOSE Routine 11/15/2018 5:27 PM CDT ECHOCARDIOGRAM 2D Routine 11/15/2018 COMPLETE W MMODE SPECTRAL 1:37 PM CDT COLOR DOPPLER (19421) ESTIMATED GFR Routine 11/15/2018 1:02 PM CDT LACTIC ACID LEVEL Routine 11/15/2018 1:02 PM CDT BASIC METABOLIC PANEL Routine 11/15/2018 1:02 PM CDT POC GLUCOSE Routine 11/15/2018 11:10 AM CDT US RENAL DOPPLER Routine 11/15/2018 10:57 AM CDT POC GLUCOSE Routine 11/15/2018 7:21 AM CDT RENIN ACTIVITY Routine 11/15/2018 5:20 AM CDT ALDOSTERONE, SERUM Routine 11/15/2018 5:20 AM CDT HC COMPLETE BLD COUNT Routine 11/15/2018 W/AUTO DIFF 5:20 AM CDT ESTIMATED GFR Routine 11/15/2018 4:00 AM CDT PHOSPHORUS LEVEL Routine 11/15/2018 4:00 AM CDT MAGNESIUM LEVEL Routine 11/15/2018 4:00 AM CDT COMPREHENSIVE METABOLIC Routine 11/15/2018 PANEL 4:00 AM CDT POC GLUCOSE Routine 11/14/2018 9:27 PM CDT POC GLUCOSE Routine 11/14/2018 6:06 PM CDT LACTIC ACID LEVEL Routine 11/14/2018 5:45 PM CDT ESTIMATED GFR Routine 11/14/2018 5:45 PM CDT BASIC METABOLIC PANEL Routine 11/14/2018 5:45 PM CDT VENOUS BLOOD GAS STAT 11/14/2018 5:45 PM CDT BETA HYDROXYBUTYRATE Routine 11/14/2018 5:15 PM CDT XR CHEST 1 VW PORTABLE STAT 11/14/2018 3:04 PM CDT METANEPHRINES, PLASMA Routine 11/14/2018 (FREE) 1:50 PM CDT ALDOSTERONE, SERUM Routine 11/14/2018 1:50 PM CDT RENIN ACTIVITY Routine 11/14/2018 1:50 PM CDT POC GLUCOSE Routine 11/14/2018 1:25 PM CDT POC GLUCOSE Routine 11/14/2018 11:46 AM CDT LACTIC ACID LEVEL Routine 11/14/2018 10:02 AM CDT BASIC METABOLIC PANEL Routine 11/14/2018 10:02 AM CDT ESTIMATED GFR Routine 11/14/2018 10:02 AM CDT MAGNESIUM LEVEL Routine 11/14/2018 10:02 AM CDT PHOSPHORUS LEVEL Routine 11/14/2018 10:02 AM CDT THYROID STIMULATING Routine 11/14/2018 HORMONE 10:02 AM CDT CORTISOL LEVEL, RANDOM Routine 11/14/2018 10:02 AM CDT LACTIC ACID LEVEL Routine 11/14/2018 8:39 AM CDT POC GLUCOSE Routine 11/14/2018 7:21 AM CDT ESTIMATED GFR Routine 11/14/2018 5:10 AM CDT PHOSPHORUS LEVEL Routine 11/14/2018 5:10 AM CDT MAGNESIUM LEVEL Routine 11/14/2018 5:10 AM CDT LIPID PANEL Routine 11/14/2018 5:10 AM CDT DIGOXIN LEVEL Routine 11/14/2018 5:10 AM CDT COMPREHENSIVE METABOLIC Routine 11/14/2018 PANEL 5:10 AM CDT HEMOGLOBIN A1C Routine 11/14/2018 5:00 AM CDT HC COMPLETE BLD COUNT Routine 11/14/2018 W/AUTO DIFF 5:00 AM CDT POC GLUCOSE Routine 11/14/2018 4:27 AM CDT SODIUM LEVEL, URINE, Routine 11/14/2018 RANDOM 4:24 AM CDT UREA NITROGEN, URINE, Routine 11/14/2018 RANDOM 4:24 AM CDT CREATININE LEVEL, URINE, Routine 11/14/2018 RANDOM 4:24 AM CDT POC GLUCOSE Routine 11/14/2018 12:59 AM CDT POC GLUCOSE Routine 11/13/2018 11:08 PM CDT US GALLBLADDER Routine 11/13/2018 10:40 PM CDT ECG 12-LEAD STAT 11/13/2018 10:38 PM CDT ESTIMATED GFR STAT 11/13/2018 9:47 PM CDT LACTIC ACID LEVEL STAT 11/13/2018 9:47 PM CDT BASIC METABOLIC PANEL STAT 11/13/2018 9:47 PM CDT POC GLUCOSE Routine 11/13/2018 8:51 PM CDT POC GLUCOSE Routine 11/13/2018 7:26 PM CDT LACTIC ACID LEVEL Routine 11/13/2018 7:07 PM CDT CREATININE LEVEL, URINE, Routine 11/13/2018 RANDOM 5:56 PM CDT POC GLUCOSE Routine 11/13/2018 5:50 PM CDT POC GLUCOSE Routine 11/13/2018 4:29 PM CDT POC GLUCOSE Routine 11/13/2018 2:44 PM CDT LACTIC ACID LEVEL STAT 11/13/2018 2:36 PM CDT PHOSPHORUS LEVEL STAT 11/13/2018 2:36 PM CDT MAGNESIUM LEVEL STAT 11/13/2018 2:36 PM CDT VENOUS BLOOD GAS STAT 11/13/2018 2:36 PM CDT ESTIMATED GFR STAT 11/13/2018 2:36 PM CDT LIPASE LEVEL STAT 11/13/2018 2:36 PM CDT BASIC METABOLIC PANEL STAT 11/13/2018 2:36 PM CDT BETA HYDROXYBUTYRATE STAT 11/13/2018 2:36 PM CDT TROPONIN Timed 11/13/2018 2:36 PM CDT GRAM STAIN Routine 11/13/2018 11:19 AM CDT URINE CULTURE Routine 11/13/2018 11:19 AM CDT XR CHEST 2 VW STAT 11/13/2018 10:27 AM CDT URINALYSIS SCREEN AND Routine 11/13/2018 MICROSCOPY, WITH REFLEX 10:13 AM CDT TO CULTURE PARTIAL THROMBOPLASTIN STAT 11/13/2018 TIME (PTT) 10:03 AM CDT PROTHROMBIN TIME WITH INR STAT 11/13/2018 10:03 AM CDT HEPATIC FUNCTION PANEL STAT 11/13/2018 10:03 AM CDT LIPASE LEVEL STAT 11/13/2018 10:03 AM CDT ESTIMATED GFR STAT 11/13/2018 10:03 AM CDT B NATRIURETIC PEPTIDE STAT 11/13/2018 10:03 AM CDT TROPONIN STAT 11/13/2018 10:03 AM CDT COMPREHENSIVE METABOLIC STAT 11/13/2018 PANEL 10:03 AM CDT HC COMPLETE BLD COUNT STAT 11/13/2018 W/AUTO DIFF 10:03 AM CDT ECG 12-LEAD STAT 11/13/2018 9:44 AM CDT US GALLBLADDER Routine 11/09/2018 Pain of upper abdomen 12:10 PM CDT HEPATIC FUNCTION PANEL Routine 10/31/2018 Pain of upper abdomen 3:09 PM CDT BASIC METABOLIC PANEL Routine 10/31/2018 Pain of upper abdomen 3:09 PM CDT CBC WITH PLATELET AND Routine 10/31/2018 Pain of upper abdomen DIFFERENTIAL 3:09 PM CDT after 11/21/2017 Results * POC glucose (11/16/2018 9:10 AM CDT) Only the most recent of 18 results within the time period is included. POC glucose 114 (H) 65 - 99 mg/dL [facility] Comment: [facility] Notified RN Meter ID: [id number] Field Operations Manager: Farhan Yap Performing Organization Address City/[facility]/Zipcode Phone Number [facility] DEPARTMENT OF [address] [place] [address] PATHOLOGY AND GENOMIC MEDICINE [address] * Estimated GFR (11/16/2018 3:37 AM CDT) Only the most recent of 9 results within the time period is included. Estimated GFR 69 mL/min/1.73 m2 [facility] Comment: HOSPITAL CatergoryUnitsInte rpretation G1 >=90 Normal or high G2 60-89Mildly decreased P4z40-10 Mildly to moderately decreased A3h39-96 Moderately to severely decreased G4 15-29Severely decreased G5 <15Kidney failure The eGFR was calculated using the Chronic Kidney Disease Epidemiology Collaboration (CKD-EPI) equation. Interpretation is based on recommendations of the National Kidney Foundation-Kidney Disease Outcomes Quality Initiative (NKF-KDOQI) published in 2014. Specimen Plasma specimen Performing Organization Address City/[facility] Phone Number [facility] DEPARTMENT OF [address] [place] [address] PATHOLOGY AND GENOMIC MEDICINE [address] * CBC with platelet and differential (11/16/2018 3:37 AM CDT) Only the most recent of 5 results within the time period is included. WBC 11.08 (H) 4.50 - 11.00 k/uL [facility] RBC 5.36 4.40 - 6.00 m/uL [facility] HGB 15.9 14.0 - 18.0 g/dL [facility] HCT 49.0 41.0 - 51.0 % [facility] MCV 91.4 82.0 - 100.0 fL [facility] MCH 29.7 27.0 - 34.0 pg [facility] MCHC 32.4 31.0 - 37.0 g/dL [facility] RDW - SD 46.6 37.0 - 55.0 fL [facility] MPV 11.7 8.8 - 13.2 fL [facility] Platelet count 253 150 - 400 k/uL [facility] Nucleated RBC 0.00 /100 WBC [facility] Neutrophils 65.9 39.0 - 69.0 % [facility] Lymphocytes 23.5 (L) 25.0 - 45.0 % [facility] Monocytes 7.9 0.0 - 10.0 % [facility] Eosinophils 1.7 0.0 - 5.0 % [facility] Basophils 0.5 0.0 - 1.0 % [facility] Immature granulocytes 0.5Comment: "Immature 0.0 - 1.0 % [facility] granulocytes" (promyelocytes, HOSPITAL myelocytes, metamyelocytes) Specimen Blood Performing Organization Address City/[facility]ode Phone Number [facility] [place] [address] PATHOLOGY AND [facility] MEDICINE [address] * Phosphorus level (11/16/2018 3:37 AM CDT) Only the most recent of 5 results within the time period is included. Phosphorus 3.8 2.4 - 4.5 mg/dL [facility] Specimen Plasma specimen Performing Organization Address [facility] Phone Number [facility] [place] [address] PATHOLOGY AND [facility] MEDICINE [address] * Magnesium level (11/16/2018 3:37 AM CDT) Only the most recent of 5 results within the time period is included. Magnesium 1.6 1.6 - 2.6 mg/dL [facility] Specimen Plasma specimen Performing Organization Address [facility] Phone Number [facility] [place] [address] PATHOLOGY AND GENOMIC MEDICINE [address] * Comprehensive metabolic panel (11/16/2018 3:37 AM CDT) Only the most recent of 4 results within the time period is included. Sodium 139 135 - 148 mEq/L [facility] Potassium 3.9 3.5 - 5.0 mEq/L [facility] Chloride 107 98 - 112 mEq/L [facility] CO2 17 (L) 24 - 31 mEq/L [facility] Anion gap 15@ANIO 7 - 15 mEq/L [facility] BUN 30 (H) 6 - 20 mg/dL [facility] Creatinine 1.23 (H) 0.70 - 1.20 mg/dL [facility] Glucose 123 (H) 65 - 99 mg/dL [facility] Calcium 8.5 8.3 - 10.2 mg/dL [facility] Protein 6.1 (L) 6.3 - 8.3 g/dL [facility] Comment: HOSPITAL 4.6-7.0 g/dL 1 week 4.4-7.6 g/dL 7 months-1year 5.1-7.3 g/dL 1-2 years5.6-7 .5 g/dL >3 years6.0-8 .0 g/dL 18-150 6.3-8.3 g/dL Albumin 2.9 (L) 3.5 - 5.0 g/dL [facility] A/G ratio 0.9 0.7 - 3.8 [facility] Alkaline phosphatase 117 40 - 129 U/L [facility] AST 94 (H) 10 - 50 U/L [facility] ALT 66 (H) 5 - 50 U/L [facility] Total bilirubin 0.9 0.0 - 1.2 mg/dL [facility] Specimen Plasma specimen Performing Organization Address City/State/Zipcode Phone Number [facility] DEPARTMENT OF [address] [place] [address] PATHOLOGY AND GENOMIC MEDICINE [address] * Echocardiogram complete w contrast and 3D if needed (11/15/2018 1:37 PM CDT) Narrative Performed At [facility] Echocardiography Report [id number] [place] [address] Pat.Name:HAY BROWN Deni.ID:[id number] .Date: 11/15/2018 Refer.MD:AUGUSTINA MATHTEWS MD Exam Time: 11:12:00 AM Study Type:Routine Echo Height:69inWeight:247lb BSA: 2.26 m2 DOBAge:1970,48Y Sex: MALEBP:117/85 HR:100 bpm Sonogrphr: Denisha Yu RDCS Pat. Stat.:Inpatient Room:[address] Study Status:Final Echo Event ID:[id number] Order ID:[id number] Reason for Study:HF - Initial eval of known or suspected HF (systeolic or diastolic) based on symptoms, signs, or abnormal test results Procedures:2D Echo, Colorflow Doppler, Portable Race:C SUMMARY: Estimated EF is 35-39%. RV size is enlarged. RV systolic function is moderately to severely depressed. Estimated PA systolic pressure is 39 mmHg, assuming a mean RAP of 20 mmHg. FINDINGS: LV: LV size is mildly enlarged. There is moderate eccentric LV hypertrophy.Overall wall motion is hypokinetic. LV EF is mildto moderately depressed. Estimated EF is 35-39%. RV: RV size is enlarged. RV systolic function is moderately to severelydepressed. LA: LA volume is severely enlarged. RA: RA volume is enlarged. AO: Aortic root diameter is normal. HAI: No pericardial effusion. AV: Focal thickening of AV leaflets. MV: No structural MV abnormalities noted. Mild mitral regurgitation. PV: No structural PV abnormalities noted. TV: Dilated tricuspid annulus with poor coaptation. Mild tricuspidregurgitation Kraft: Unable to assess diastolic function. Other:Estimated PA systolic pressure is 39 mmHg, assuming a mean RAPof 20 mmHg. MEASUREMENTS: 2D Parasternal Long [place] LVOT 2.1 cmIVSd 1.2 cm LVIDd5.4 cmIndex2.4 cm/m LVPWd1.3 cm LVIDs4.1 cm LV Didq404 g(122-174) LV%fs 24.1 % LVM Iocio160.9 g/m2 LA Ds5.1 cmRWT0.4 Ao Rtd 3.7 cmIndex1.7 cm/m LV EF Biplane KXIWU205.6 ml (65-193) Index90.1 ml/m LV SV 90.5 ml BWIMJ269.1 xmXvyqd64.1 ml/m LV EF 44.4 %(63-77) LA Sng Plane LA Area 39.7 cm2(8.8-23.4) LA Vol 160.7 ml Index71.1 ml/m LA LngAx 8.1 cm DOPPLER LVOT For Flow LVOT Area3.5 cm2 LVOT SV 41.8 ml LVOTpkVel 79.3 cm/sHR52.5 bpm LVOTpkPG 2.5 mmHgLVOT CO2.2 l/min LVOTmnPG 1.3 mmHgLVOT CI1 l/m/m2 LVOT TVI12.1 cm Mitral Valve MV pkE76.1 cm/s (60-130) PA Sys Press RA Press20 mmHgSysP TV 38.9 mmHg TI ryan 217.4 cm/s Left Ventricle LaSep Em 7 cm/sLaLat Em11.8 cm/s MMODE tapse TAPS Dim 1 cm Signed 11/15/2018 08:29 PM Anna Curtis M.D. Procedure Note Interface, Radiology Results In - 11/15/2018 8:29 PM CDT Echocardiography Report [id number] [place] [address] Pat.Name: HAY BROWN Pat.ID: [id number] .Date: 11/15/2018 Refer.MD: AUGUSTINA MATTHEWS MD Exam Time: 11:12:00 AM Study Type:Routine Echo Height: 69in Weight: 247lb BSA: 2.26 m2 Age: 12 1970,48Y Sex: MALE BP: 117/85 HR: 100 bpm Sonogrphr: Denisha Yu RDCS Pat. Stat.:Inpatient Room: [address] Study Status:Final Echo Event ID:[id number] Order ID: [id number] Reason for Study:HF - Initial eval of known or suspected HF (systeolic or diastolic) based on symptoms, signs, or abnormal test results Procedures:2D Echo, Colorflow Doppler, Portable Race: C SUMMARY: Estimated EF is 35-39%. RV size is enlarged. RV systolic function is moderately to severely depressed. Estimated PA systolic pressure is 39 mmHg, assuming a mean RAP of 20 mmHg. FINDINGS: LV: LV size is mildly enlarged. There is moderate eccentric LV hypertrophy. Overall wall motion is hypokinetic. LV EF is mild to moderately depressed. Estimated EF is 35-39%. RV: RV size is enlarged. RV systolic function is moderately to severely depressed. LA: LA volume is severely enlarged. RA: RA volume is enlarged. AO: Aortic root diameter is normal. HAI: No pericardial effusion. AV: Focal thickening of AV leaflets. MV: No structural MV abnormalities noted. Mild mitral regurgitation. PV: No structural PV abnormalities noted. TV: Dilated tricuspid annulus with poor coaptation. Mild tricuspid regurgitation Kraft: Unable to assess diastolic function. Other: Estimated PA systolic pressure is 39 mmHg, assuming a mean RAP of 20 mmHg. MEASUREMENTS: 2D Parasternal Long [place] LVOT 2.1 cm IVSd 1.2 cm LVIDd 5.4 cm Index 2.4 cm/m LVPWd 1.3 cm LVIDs 4.1 cm LV Mass 314 g (122-174) LV%fs 24.1 % LVM Index 138.9 g/m2 LA Ds 5.1 cm RWT 0.4 Ao Rtd 3.7 cm Index 1.7 cm/m LV EF Biplane LVEDV 203.6 ml (65-193) Index 90.1 ml/m LV SV 90.5 ml LVESV 113.1 ml Index 50.1 ml/m LV EF 44.4 % (63-77) LA Sng Plane LA Area 39.7 cm2 (8.8-23.4) LA Vol 160.7 ml Index 71.1 ml/m LA LngAx 8.1 cm DOPPLER LVOT For Flow LVOT Area 3.5 cm2 LVOT SV 41.8 ml LVOTpkVel 79.3 cm/s HR 52.5 bpm LVOTpkPG 2.5 mmHg LVOT CO 2.2 l/min LVOTmnPG 1.3 mmHg LVOT CI 1 l/m/m2 LVOT TVI 12.1 cm Mitral Valve MV pkE 76.1 cm/s (60-130) PA Sys Press RA Press 20 mmHg SysP TV 38.9 mmHg TI ryan 217.4 cm/s Left Ventricle LaSep Em 7 cm/s LaLat Em 11.8 cm/s MMODE tapse TAPS Dim 1 cm Signed 11/15/2018 08:29 PM Anna Curtis M.D. Performing Organization Address [facility] Cent[facility]v Phone Number [facility] [address] [place] [address] * Lactic acid level (11/15/2018 1:02 PM CDT) Only the most recent of 7 results within the time period is included. Lactic acid 1.6 0.5 - 2.2 mmol/L [facility] Specimen Blood Performing Organization Address City/[facility] Phone Number [facility] DEPARTMENT OF [address] [place] [address] PATHOLOGY AND GENOMIC MEDICINE [address] * Basic metabolic panel (11/15/2018 1:02 PM CDT) Only the most recent of 6 results within the time period is included. Sodium 137 135 - 148 mEq/L [facility] Potassium 3.6 3.5 - 5.0 mEq/L [facility] Chloride 103 98 - 112 mEq/L [facility] CO2 21 (L) 24 - 31 mEq/L [facility] Anion gap 13@ANIO 7 - 15 mEq/L [facility] BUN 26 (H) 6 - 20 mg/dL [facility] Creatinine 1.26 (H) 0.70 - 1.20 mg/dL [facility] Glucose 203 (H) 65 - 99 mg/dL [facility] Calcium 8.5 8.3 - 10.2 mg/dL [facility] Specimen Blood Performing Organization Address City/State/Zipcode Phone Number [facility] DEPARTMENT OF [address] [place] [address] PATHOLOGY AND GENOMIC MEDICINE [address] * US Renal Doppler (11/15/2018 10:57 AM CDT) Narrative Performed At EXAMINATION:US RENAL DOPPLER RADIANT CLINICAL HISTORY:HTNreno-vasc likelynormal GFR TECHNIQUE: Examination includes a full duplex Doppler scan of the renal vessels (real-time B mode grayscale, Doppler spectral analysis, and Doppler color flow imaging). COMPARISON:None. FINDINGS: Bilateral main renal arteries and veins are patent and demonstrate normal waveform morphologies. Peak systolic velocity in the right and left main renal arteries measure 46 and 39 cm/s, respectively. Right and left main renal artery to aorta peak systolic velocity ratios are normal measuring 0.70 and 0.59, respectively. Right resistive index measures 0.66-0.73.Left resistive index measures 0.48-0.55. These values are within normal limits. Spectral Doppler examination demonstrates no evidence of broadening or delayed systolic upstroke. IMPRESSION:No evidence of a hemodynamically signficant main renal artery stenosis. [facility]-[id number] Procedure Note Hm Interface, Radiology Results Incoming - 11/15/2018 1:04 PM CDT EXAMINATION: US RENAL DOPPLER CLINICAL HISTORY: HTN minor-vasc likely normal GFR TECHNIQUE: Examination includes a full duplex Doppler scan of the renal vessels (real-time B mode grayscale, Doppler spectral analysis, and Doppler color flow imaging). COMPARISON: None. FINDINGS: Bilateral main renal arteries and veins are patent and demonstrate normal waveform morphologies. Peak systolic velocity in the right and left main renal arteries measure 46 and 39 cm/s, respectively. Right and left main renal artery to aorta peak systolic velocity ratios are normal measuring 0.70 and 0.59, respectively. Right resistive index measures 0.66-0.73. Left resistive index measures 0.48- 0.55. These values are within normal limits. Spectral Doppler examination demonstrates no evidence of broadening or delayed systolic upstroke. IMPRESSION: No evidence of a hemodynamically signficant main renal artery stenosis. [facility]-[id number] [facility] Organization Address City/State/Zipcode Phone Number [facility] [address] [place] [address] * Renin activity (11/15/2018 5:20 AM CDT) Only the most recent of 2 results within the time period is included. Renin activity 0.4 [facility] Comment: INTERPRETIVE INFORMATION: Renin Activity Adult, Normal sodium diet: Supine ................. 0.2-1.6 ng/mL/hr Upright ................ 0.5-4.0 ng/mL/hr Children, Normal sodium diet, Supine: Hitchcock (1-7 days) ..... 2.0-35.0 ng/mL/hr Cord blood ............. 4.0-32.0 ng/mL/hr 1-12 mos ............... 2.4-37.0 ng/mL/hr 13 mos-3 yrs ........... 1.7-11.2 ng/mL/hr 4-5 yrs ................ 1.0- 6.5 ng/mL/hr 6-10 yrs ............... 0.5- 5.9 ng/mL/hr 11-15 yrs .............. 0.5- 3.3 ng/mL/hr Children, normal sodium diet, Upright: 0-3 yrs ................ Not Available 4-5 yrs ................ Less than or equal to 15 ng/mL/hr 6-10 yrs ............... Less than or equal to 17 ng/mL/hr 11-15 yrs .............. Less than or equal to 16 ng/mL/hr Plasma renin activity measures enzyme ability to convert angiotensinogen to angiotensin I and is limited by the availability of angiotensinogen. Plasma renin activity is not an accurate indicator of enzyme activity when angiotensinogen is decreased. See Compliance Statement D: [email or web address].[email or web address]/CS Performed by [employer], [address] [place] [address] [email or web address], Harvey Dietz MD - Lab. Director Specimen Blood Narrative Performed At results called to and read back by ADILSON ELLIOTT/JUWAN [facility] at _ 11/15/201806:39 ) by EP Performing Organization Address City/State/Zipcode Phone Number [facility] [address] [place] [address] [facility] [address] [place] [address] * Aldosterone, serum (11/15/2018 5:20 AM CDT) Only the most recent of 2 results within the time period is included. Aldosterone 24.9 ng/dL [facility] Comment: INTERPRETIVE INFORMATION: Aldosterone, Serum Reference intervals for age 15 and older: Upright .........4.0 - 31.0 ng/dL Supine ..........Less than or equal to 16.0 ng/dL Unspecified .....Less than or equal to 31.0 ng/dL Normal serum levels of aldosterone are dependent on the sodium intake and whether the patient is upright or supine. High sodium intake will tend to suppress serum aldosterone, whereas low sodium intake will elevate serum aldosterone. The reference intervals for serum aldosterone are based on normal sodium intake. Access complete set of age- and/or gender-specific reference intervals for this test in the [facility] Test Directory ([employer]Skoot). Performed by [employer], [address] [place] [address] [email or web address], Harvey Dietz MD - Lab. Director Specimen Serum Narrative Performed At results called to and read back by ADILSON ELLIOTT/MMIF10 [facility] at _ 11/15/201806:39 ) by EP Performing Organization Address City/State/Zipcode Phone Number [facility] [address] [place] [address] [facility] [address] [place] [address] * Venous blood gas (11/14/2018 5:45 PM CDT) Only the most recent of 2 results within the time period is included. pH, venous 7.39 7.32 - 7.42 [facility] pCO2, venous 47 45 - 51 mmHg [facility] pO2, venous 29 25 - 40 mmHg [facility] Base excess, venous 2 -2 - 2 meq/L [facility] O2 saturation, venous 46 40 - 70 % [facility] Bicarbonate, venous 27.5 21.0 - 28.0 mmol/L [facility] Specimen Blood Performing Organization Address City/[facility] Phone Number [facility] DEPARTMENT OF [address] [place] [address] PATHOLOGY AND GENOMIC MEDICINE [address] * Beta hydroxybutyrate (11/14/2018 5:15 PM CDT) Only the most recent of 2 results within the time period is included. Beta hydroxybutyrate 0.11 0.02 - 0.27 mmol/L [facility] Specimen Serum Performing Organization Address City/[facility] Phone Number [facility] DEPARTMENT OF [address] [place] [address] PATHOLOGY AND GENOMIC MEDICINE [address] * XR Chest 1 Vw Portable (11/14/2018 3:04 PM CDT) Narrative Performed At EXAMINATION:XR CHEST 1 VW PORTABLE RADIANT CLINICAL HISTORY:evaluate for pulmonary edema COMPARISON:Most Recent Prior at [facility] IMPRESSION: The heart is enlarged. Hypoventilation. Mild pulmonary congestion. No focal infiltrates or effusions. [facility]-[id number] Procedure Note Hm Interface, Radiology Results Incoming - 11/14/2018 3:09 PM CDT EXAMINATION: XR CHEST 1 VW PORTABLE CLINICAL HISTORY: evaluate for pulmonary edema COMPARISON: Most Recent Prior at [facility] IMPRESSION: The heart is enlarged. Hypoventilation. Mild pulmonary congestion. No focal infiltrates or effusions. [facility]-[id number] Performing Organization Address [facility] [place] [address] * Metanephrines, plasma (free) (11/14/2018 1:50 PM CDT) Metanephrine 0.42 0.00 - 0.49 nmol/L [facility] Normetanephrine 1.41 (H) 0.00 - 0.89 nmol/L [facility] Comment: HOSPITAL This test was developed and its performance characteristics determined by the Department of Pathology and Genomic Medicine, [facility]. Plasma free metanephrines are tested by LC-MS/MS. It has not beencleared or approved by FDA. The laboratory is regulated under CLIA as qualified to perform high-complexity testing. This test is used for clinical purposes. It should not be regarded as investigational or for research. Narrative Performed At MICH GUTHRIE AT 3:12 ON 11/14/18 BY [id number]. [facility] DEPARTMENT OF PATHOLOGY AND GENOMIC MEDICINE Performing Organization Address [facility] [place] [address] PATHOLOGY AND GENOMIC MEDICINE [address] * Thyroid stimulating hormone (11/14/2018 10:02 AM CDT) TSH 2.97 0.27 - 4.20 uIU/mL [facility] Specimen Plasma specimen Performing Organization Address [facility] Phone Number [facility] [place] [address] PATHOLOGY AND GENOMIC MEDICINE [address] * Cortisol level, random (11/14/2018 10:02 AM CDT) Cortisol, random 13 ug/dL [facility] Comment: HOSPITAL Reference Ranges are not established for non-timed Cortisol levels. Reference Range for Timed Cortisol: 6 - 10 AM 6 - 18 ug/dl 4 - 8PM 3 - 11 ug/dl Specimen Plasma specimen Performing Organization Address [facility]ode Phone Number [facility] [place] [address] PATHOLOGY AND GENOMIC MEDICINE [facility] [address] [place] [address] * Digoxin level (11/14/2018 5:10 AM CDT) Digoxin <0.3 (L) 0.8 - 2.0 ng/mL [facility] Comment: HOSPITAL For valid Digoxin results, at least 6 hours should elapse between time of last dose and collection of blood. Otherwise, result may be false high. Therapeutic Range: 0.8 - 2.0 ng/mL Specimen Plasma specimen Narrative Performed At results called to and read back by INES VERNON/MMIF10 [facility] DEPARTMENT OF at11/14/201805:45by KXG. PATHOLOGY AND GENOMIC MEDICINE Performing Organization Address City/State/Zipcode Phone Number [facility] DEPARTMENT OF [address] [place] [address] PATHOLOGY AND GENOMIC MEDICINE [address] * Lipid panel (11/14/2018 5:10 AM CDT) Cholesterol 124 <200 mg/dL [facility] Triglycerides 103 <150 mg/dL [facility] HDL cholesterol 25 (L) >40 mg/dL [facility] LDL cholesterol 91Comment: Result obtained by <100 mg/dL [facility] direct LDL measurement [facility] Lipid panel SeeBelow [facility] interpretation Comment: HOSPITAL Total Cholesterol (mg/dL) <200 Desirable 200-239Borderline -high >=240High Triglycerides (mg/dL) <150 Normal 150-199Borderline -high 200-499High >=500Very high HDL Cholesterol (mg/dL) <40Low (male) <40Low (female) LDL Cholesterol (mg/dL) <100 Optimal 100-129Near or above optimal 130-159Borderline -high 160-189High >=190Very high Risk Catergories that modify LDL goals. Risk Catergories LDL goal (mg/dL) CHD and CHD risk equivalent<100 (10-year risk >20%) Multiple (2+) risk factors <130 (10-year risk=<20%) 0-1 risk factors <160 (<10-year risk) Defining levels of lipids in metabolic syndrome Triglycerides >=150 mg/dL HDL Cholesterol Men <40 mg/dL Women <40 mg/dL Non-HDL cholesterol is a second target for therapy in persons with high triglycerides (>=200 mg/dL) Specimen Plasma specimen Narrative Performed At results called to and read back by INES VERNON/MMIF10 [facility] DEPARTMENT OF at11/14/201805:45by KXG. PATHOLOGY AND GENOMIC MEDICINE Performing Organization Address City/State/Zipcode Phone Number [facility] [place] [address] PATHOLOGY AND GENOMIC MEDICINE [address] * Hemoglobin A1c (11/14/2018 5:00 AM CDT) Hemoglobin A1C 12.9 (H) 4.0 - 5.6 % [facility] Comment: HOSPITAL HbA1c cutoffs for diagnosing diabetes: 4.0% - 5.6%=normal 5.7% - 6.4%=increased risk for diabetes (prediabetes) >=6.5%=diabetes Goals for glycemic control (ADA 2016) < 7.0%Target for non adults with diabetes. More or less stringent targets may be appropriate for individual patients. <7.5% Target for Children and adolescents with type 1 diabetes. Narrative Performed At results called to and read back by INES VERNON/MMIF10 [facility] DEPARTMENT OF at11/14/201805:45by KXG. PATHOLOGY AND GENOMIC MEDICINE Performing Organization Address City/[facility]/Zipcode Phone Number [facility] [place] [address] PATHOLOGY AND GENOMIC MEDICINE [address] * Urea nitrogen, urine, random (11/14/2018 4:24 AM CDT) Urea nitrogen, urine, 427 mg/dL [facility] Specimen Urine Performing Organization Address City/State/Zipcode Phone Number [facility] [place] [address] PATHOLOGY AND GENOMIC MEDICINE [address] * Sodium level, urine, random (11/14/2018 4:24 AM CDT) Sodium, urine, random 69 mEq/L [facility] Specimen Urine Performing Organization Address City/[facility]/Zipcode Phone Number [facility] [place] [address] PATHOLOGY AND GENOMIC MEDICINE [address] [place] [address] HOSPITAL * Creatinine level, urine, random (11/14/2018 4:24 AM CDT) Only the most recent of 2 results within the time period is included. Creatinine, urine, random 74 mg/dL [facility] Specimen Urine Performing Organization Address [facility]ercowv Phone Number [facility] DEPARTMENT OF [address] [place] [id number] PATHOLOGY AND GENOMIC MEDICINE [address] * US Gallbladder (11/13/2018 10:40 PM CDT) Only the most recent of 2 results within the time period is included. Narrative Performed At EXAMINATION:US GALLBLADDER RADIANT CLINICAL HISTORY:RUQ painno feverno elev WBC COMPARISON:11/09/2018. FINDINGS: Gallbladder: The gallbladder is without evidence of calculi. There is nonspecific gallbladder wall thickening. There is no pericholecystic edema. There is no sonographic Clark's sign. CBD: 5 mm, which is within normal limits. Portal vein: The portal vein demonstrates normal hepatopetal flow. Liver: The visualized portions of liver are unremarkable. IMPRESSION: 1. No cholelithiasis or evidence of acute cholecystitis. 2. Nonspecific gallbladder wall thickening. [facility]-[id number] Procedure Note Interface, Radiology Results Incoming - 11/13/2018 11:37 PM CDT EXAMINATION: US GALLBLADDER CLINICAL HISTORY:RUQ pain no fever no elev WBC COMPARISON: 11/09/2018. FINDINGS: Gallbladder: The gallbladder is without evidence of calculi. There is nonspecific gallbladder wall thickening. There is no pericholecystic edema. There is no sonographic Clark's sign. CBD: 5 mm, which is within normal limits. Portal vein: The portal vein demonstrates normal hepatopetal flow. Liver: The visualized portions of liver are unremarkable. IMPRESSION: 1. No cholelithiasis or evidence of acute cholecystitis. 2. Nonspecific gallbladder wall thickening. [facility]-[id number] Performing Organization Address City/[facility]/Zipcode Phone Number [facility] [address] [place] [phone] * ECG 12 lead (11/13/2018 10:38 PM CDT) Only the most recent of 2 results within the time period is included. Ventricular rate 95 [facility] Atrial rate 119 [facility] QRSD interval 106 [facility] QT interval 358 [facility] QTC interval 449 [facility] QRS axis 1 -45 [facility] T wave axis 187 [facility] EKG impression Atrial fibrillation-Left [facility] anterior fascicular block-T wave abnormality, consider lateral ischemia-Abnormal ECG-In automated comparison with ECG of 13-NOV-2018 09:44,-T wave inversion now evident in Lateral leads- Narrative Performed At Performing Organization Address City/[facility] Phone Number [facility] [address] [place] [address] * Troponin (11/13/2018 2:36 PM CDT) Only the most recent of 2 results within the time period is included. Troponin <0.30 0.00 - 0.30 ng/mL [facility] Comment: HOSPITAL 0.30 - 1.49 ng/mlMay indicate increased risk of acute coronary syndrome. >=1.5 ng/ml Consistent with acute myocardial infarction. The diagnostic value of a single normal or non-diagnostic result is questionable.Serial samples at 2-6 hour intervals are required to rule out acute myocardial injury. Specimen Plasma specimen Performing Organization Address [facility]ode Phone Number [facility] [place] [address] PATHOLOGY AND GENOMIC MEDICINE [address] * Lipase level (11/13/2018 2:36 PM CDT) Only the most recent of 2 results within the time period is included. Lipase 25 13 - 60 U/L [facility] Specimen Plasma specimen Performing Organization Address City/[facility]/Zipcode Phone Number [facility] [place] [address] PATHOLOGY AND GENOMIC MEDICINE [address] * Gram stain (11/13/2018 11:19 AM CDT) Gram stain result No WBC's or organisms seen. [facility] Comment: HOSPITAL Specimen Information Specimen Source: Urine Specimen Site: Clean catch Specimen Urine Performing Organization Address City/[facility] Phone Number [facility] [place] [address] PATHOLOGY AND GENOMIC MEDICINE [facility] [address] [place], [place] [id number] [place] [address] * Urine culture (11/13/2018 11:19 AM CDT) Urine culture isolate Mixed mk 10-4 col/cc [facility] Comment: HOSPITAL Specimen Information Specimen Source: Urine Specimen Site: Clean catch Specimen Urine Performing Organization Address [facility]erc[facility]v Phone Number [facility] DEPARTMENT OF [address] [place] [address] PATHOLOGY AND GENOMIC MEDICINE [address] * XR Chest 2 Vw (11/13/2018 10:27 AM CDT) Narrative Performed At EXAMINATION:XR CHEST 2 VW RADIANT CLINICAL HISTORY: 48 years MaleShortness of breath COMPARISON:07/05/2004 IMPRESSION: 1.The heart is slightly enlarged. 2.There is no evidence of pulmonary edema. There are no focal consolidations or effusions. 3.Spondylotic changes are noted in the thoracic spine. [facility]-[id number] Procedure Note Interface, Radiology Results Incoming - 11/13/2018 10:34 AM CDT EXAMINATION: XR CHEST 2 VW CLINICAL HISTORY: 48 years Male Shortness of breath COMPARISON: 07/05/2004 IMPRESSION: 1. The heart is slightly enlarged. 2. There is no evidence of pulmonary edema. There are no focal consolidations or effusions. 3. Spondylotic changes are noted in the thoracic spine. [facility]-[id number] Performing Organization Address [facility]ode Phone Number [facility] [address] [place] [address] * Urinalysis screen and microscopy, with reflex to culture (11/13/2018 10:13 AM CDT) Specimen site Clean catch [facility] Color, UA Yellow [facility] Appearance, UA Hazy [facility] Specific gravity, UA 1.027 1.001 - 1.035 [facility] pH, UA 6.0 5.0 - 8.5 [facility] Protein, UA 3+ (A) Negative [facility] Glucose, UA 3+ (A) Negative [facility] Ketones, UA Negative Negative [facility] Bilirubin, UA Negative Negative [facility] Blood, UA Negative Negative [facility] Nitrite, UA Negative Negative [facility] Urobilinogen, UA <2.0 <2.0 [facility] Leukocyte esterase, UA Negative Negative [facility] Epithelial cells, UA 2 /HPF [facility] WBC, UA 5 (H) 0 - 1 /HPF [facility] RBC, UA 1 0 - 5 /HPF [facility] Bacteria, UA Few None seen [facility] Yeast, UA None seen [facility] Yeast with pseudohyphae, None seen [facility] Hyaline casts, UA 5 /LPF [facility] Specimen Urine Performing Organization Address City/[facility] Phone Number [facility] [place] [address] PATHOLOGY AND GENOMIC MEDICINE [address] * Partial thromboplastin time, activated (11/13/2018 10:03 AM CDT) PTT 32.0 23.0 - 36.0 sec [facility] Comment: HOSPITAL PTT therapeutic range for unfractionated heparin is 61.0-112.0 seconds which corresponds to Anti-Xa 0.3-0.7 U/ml. Specimen Blood Performing Organization Address [facility]ercode Phone Number [facility] [place] [address] PATHOLOGY AND GENOMIC MEDICINE [address] * Prothrombin time with INR (11/13/2018 10:03 AM CDT) Prothrombin time 16.5 (H) 11.5 - 14.5 sec [facility] INR 1.4 [facility] Comment: HOSPITAL The International Normalized Ratio (INR) is a therapeutic monitoring tool for patients who are stable on oral anticoagulant therapy. An INR of 2.0-3.0 is suggested for deep vein thrombosis/pulmonary embolism. Specimen Blood Performing Organization Address City/[facility]/Zipcode Phone Number [facility] [place] [address] PATHOLOGY AND GENOMIC MEDICINE [address] * B natriuretic peptide (11/13/2018 10:03 AM CDT) BNP 369 (H) 0 - 100 pg/mL [facility] Specimen Blood Performing Organization Address City/[facility]/Zipcode Phone Number [facility] [place] [address] PATHOLOGY AND GENOMIC MEDICINE [address] * Hepatic function panel (11/13/2018 10:03 AM CDT) Only the most recent of 2 results within the time period is included. Albumin 3.4 (L) 3.5 - 5.0 g/dL [facility] Total bilirubin 1.4 (H) 0.0 - 1.2 mg/dL [facility] Bilirubin direct 0.3 0.0 - 0.3 mg/dL [facility] Alkaline phosphatase 82 40 - 129 U/L [facility] Protein 6.9 6.3 - 8.3 g/dL [facility] Comment: HOSPITAL Hitchcock 4.6-7.0 g/dL 1 week 4.4-7.6 g/dL 7 months-1year 5.1-7.3 g/dL 1-2 years5.6-7 .5 g/dL >3 years6.0-8 .0 g/dL 18-150 6.3-8.3 g/dL ALT 55 (H) 5 - 50 U/L [facility] AST 32 10 - 50 U/L [facility] Specimen Plasma specimen Performing Organization Address City/State/Zipcode Phone Number [facility] DEPARTMENT OF [address] [place] [address] PATHOLOGY AND GENOMIC MEDICINE [address] after 11/21/2017 Insurance Payer Benefit Subscriber ID Type Phone Address Plan / Group [employer] C[employer]NA OPEN xxxxxxxxxxx O ACCESS/NET WORK Advance Directives Patient has advance care planning documents on file. For more information, asad felix contact: [address] [phone]
--- NOTE | 2018-11-22 11:36 | NUR ---
1136 Received pt in room #9 Identiferx2. Received report from ROSA Vega. [facility] DR Gray for Dr Mckeon. TR band approach NO gross signs of pain, pallor, has elevated dialstolic pressure and in atrial fibrillation. Back to baseline orientation . Resp shallow and regular. 97% on room air. Denies necessity to defecate or urinate. Bilateral PPx4 PT/DP. Left hand iv infusing w/o s/s infiltration. TR band titration to start after 1330pm. Pt has hx sleep issues. Dr Saucedo here spoke with pt Aware of medical RX not taken due to insurance issues. Good RX and prescription x4 given to pt to help with medication acquisition request to take. Explained to and explained resources Pt to f/o for sleep study and recheck and will drop by office on dc to pickup coupons for med. Tolerating po in take. Copies of POC and dc with family. brigido/rosa
--- NOTE | 2018-11-22 12:28 | NUR ---
1228 Liam Vega gace 40 lasix ivp and 40 k po noted void 1500cc immediately. NO gross signs of pallor,pain, 1400 Pressure remain elevated intermittently (diastolic)DR Saucedo aware and orders obtain to restart Carvedilol 25mg po which pt did not have available. Med ordered from Rx and runner sent for med. 1445p.last dose of k 40po given continues to and Carvedilol 25po given. 1545 bp pedro manual and NIBP which correlates stabilized diastolic pressure 122/78. brigido/liam
--- NOTE | 2018-11-22 13:30 | NUR ---
1330 40 k po as prescribed, No gross signs of pain,pallor,pressure or dysrhythmia. TR band titration in progress and site stable. 1430 40 K po as prescribed ,No gross signs of pain, pallor,pressure or dysrhythmia. TR band titration in progress and site stable. 1445 Carvelol 25po for elevated diastolic pressure.Kasia manual pressure Stable tr band site 2x2 dressing with Coban drressing and splint on ,positive radial pulse. Notiifed Dr Linda norris to dc if diastolic pressure 100 or below. Family at bedside. Teaching done has prescriptions x4 with POC copies. No gross abnormal signs of pain,pallor. remains in stable atrial fibrillation. brigido/bridgette
--- NOTE | 2018-11-22 15:45 | NUR ---
0574 discharge home Family has copies POC Bp stabilized with manual pedro correlates to NIBP.122/87. Pt aware of importance of followup care and continuing medications as prescribed. Has 4 scripts as ordered. Aware of importance to use other resources or notify MD if prescription refill issues occur.Rt tr band stable splint in place and awarre of restricions. Knows importance to followup with sleep study Dr Young office. 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 No gross issues of pain,pallor,pressure or unstable arrhythmia. Denes SOB or chest pain Rt radial pulse adequate. ds/rn
--- NOTE | 2018-11-22 20:51 | Operative Report ---
DATE OF PROCEDURE: 11/22/2018 SURGEON: Richa Saucedo MD PROCEDURE TITLE: Cardiac catheterization. PROCEDURES: 1. Selective coronary angiography. 2. Left heart catheterization. CONSENT: Informed consent was obtained and documented in the chart. SEDATION: Midazolam 4 mg, fentanyl 75 mcg. INDICATION: Acute systolic heart failure. PROCEDURE IN DETAIL: The patient was brought to the cardiac catheterization laboratory in a fasting state after written informed consent was obtained. Bilateral groins and right wrist were prepped and draped in the usual sterile fashion. A 1% lidocaine was used to achieve local anesthesia. The right radial artery was accessed with a micropuncture needle under ultrasound guidance. A 5-Icelandic long sheath was inserted via modified Seldinger technique. Radial cocktail was given. Next, the 5-Icelandic TIG was inserted and advanced into the ascending aorta. The right coronary artery was cannulated under fluoroscopic guidance. Selective coronary angiography was performed. The TIG was then repositioned into the left coronary system. Selective coronary angiography was performed. The catheter was then advanced into the left ventricle and hemodynamic measurements were obtained. The catheter was removed, followed by the 5-Icelandic sheath. There were no immediate complications. FINDINGS: 1. Right-dominant system. 2. The left main coronary artery trifurcates into the left anterior descending, ramus, and circumflex arteries. The left anterior descending is a medium caliber vessel that wraps around the apex. There was no angiographic evidence of disease. 3. The ramus is a medium caliber vessel without significant disease. 4. The circumflex is a moderate-sized vessel, which gives rise to a high OM1, followed by an OM2 and OM3. There was no evidence of coronary artery disease. 5. Right coronary artery is a large caliber vessel. It gives rise to the PDA. There is no evidence of coronary artery disease. 6. LV pressure 157/19, LVEDP 23 mmHg. There was no gradient on pullback. IMPRESSION: 1. Nonischemic cardiomyopathy. 2. Normal coronary arteries. 3. Elevated filling pressures. RECOMMENDATIONS: Continue medical therapy for the patient's nonischemic cardiomyopathy. He will be referred to electrophyisiology for PVI for his atrial fibrillation. Richa Saucedo MD ABS/MODL /[id number] JORGE
== END | disposition home or self-care (01) ==
LOC: CATH LAB 09:22
PROVIDERS: ATTEND Internal Medicine
DX: I25.10 Atherosclerotic heart disease of native coronary artery without angina pectoris (principal); I42.8 Other cardiomyopathies; I11.0 Hypertensive heart disease with heart failure; I50.21 Acute systolic (congestive) heart failure; I48.91 Unspecified atrial fibrillation; E78.5 Hyperlipidemia, unspecified; E11.9 Type 2 diabetes mellitus without complications; K74.60 Unspecified cirrhosis of liver; Z01.812 Encounter for preprocedural laboratory examination; Z79.02 Long term (current) use of antithrombotics/antiplatelets; Z79.82 Long term (current) use of aspirin; Z82.49 Family history of ischemic heart disease and other diseases of the circulatory system
CPT/HCPCS: 36415; 80053; 85025; 93458; C1769; C1887; J1940; J2001; J2250; J7030; Q9967

== ENCOUNTER → 2018-12-24 | Day surgery (SDC) | payer OTHER ==
[2018-12-20 10:32] LABS: BASOPHILS # (AUTO) 0.1 (0.0-0.1); BASOPHILS % 0.6 % (0.0-1.0); EOSINOPHILS # (AUTO) 0.3 (0.0-0.4); EOSINOPHILS % 2.5 % (0.0-6.0); HEMATOCRIT 57.6 % (38.2-49.6); HEMOGLOBIN 20.4 g/dL (14.0-18.0); LYMPHOCYTES # (AUTO) 2.1 (1.0-3.2); LYMPHOCYTES % 20.7 % (18.0-39.1); MEAN CORPUSCULAR HEMOGLOBIN 29.6 pg (28-32); MEAN CORPUSCULAR HGB CONC 35.4 g/dL (31-35); MEAN CORPUSCULAR VOLUME 83.5 fL (81-99); MONOCYTES # (AUTO) 0.9 (0.2-0.8); MONOCYTES % 8.8 % (4.4-11.3); NEUTROPHILS # (AUTO) 6.7 (2.1-6.9); NEUTROPHILS % 66.5 % (38.7-80.0); PLATELET COUNT 251 x10e3/uL (140-360)
[2018-12-20 10:46] LABS: INR 2.6; PROTHROMBIN TIME 28.6 seconds (11.9-14.5)
[2018-12-20 10:51] LABS: ANION GAP 15.3 mmol/L (8-16); CALCIUM 10.5 mg/dL (8.4-10.2); CREATININE, SERUM 1.88 mg/dL (0.72-1.25); POTASSIUM 4.3 mmol/L (3.5-5.1)
--- NOTE | 2018-12-20 11:29 | NUR ---
[address] Saucedo office of critical labs and faxed copy labs to D office Fx #[phone].Spoke to Sr Saucedo in person who sad she old have Minna f/o. Reported also to Jyotsna LEE Preop lab specialist nurse brigido/rn
[~2018-12-24] VITALS: Ht 175.3 cm; Wt 115.7 kg
[~2018-12-24] MED LIST changes: +BENZOCAINE 20% SPR 60 ML CAN ONE; -CARVEDILOL 12.5 MG TAB PO ONE; +CARVEDILOL12.5 MG PO; +ENTRESTO 49MG/51MG PO; -FUROSEMIDE INJ 10 MG/ML 4 ML VIAL ONE; -HEPARIN SOD/SOD CHLORIDE 2,000 ML ONE; -IOPAMIDOL 370 MG/ML 200 ML INFUS..BTL INJ ONE; -LIDOCAINE HCL 2% LOCAL 20 ML VIAL ONE; +LIDOCAINE HCL 2% LOCAL INJ 5 ML SDV VIAL INJ ONE; +MAGNESIUM PO; +POTASSIUM CHLO20 ME1 PO; -POTASSIUM CHLORIDE 20 MEQ TAB CR PO ONE; +PROPOFOL IV EMULSION 10 MG/ML 20 ML VIAL ONE; -VERAPAMIL HCL 2.5 MG/ML 2 ML VIAL ONE
--- OUTSIDE RECORDS SUMMARY | 2018-12-24 07:02 | XMS REPORT | CCD ---
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 Name Role Phone Guillermo Estrada CP Allergies, Adverse Reactions, Alerts Substance Reaction Status NKDA Active Problem List Condition Effective Dates Status Chest pain Active Hypertension Active Medications Medication Instructions Start Date End Date Status aspirin 325 mg 325 mg, 1 tab, Route: PO, Drug 01/02/2012 01/02/2012 Completed tablet form: TAB, ONCE, Priority: STAT, Start date: 01/02/12 19:30:00, Stop date: 01/02/12 19:30:00 Saline Flush 0.9% 5 ml, Route: IVP, Drug Form: INJ, 01/02/2012 01/02/2012 Discontinued PRN, PRN Line Flush, Start date: 01/02/12 19:30:00, Duration: 24 hr, Stop date: 01/03/12 19:29:00 potassium chloride 40 mEq, 200 mL, Route: IV, Drug 01/03/2012 01/03/2012 Completed form: INJ, ONCE, Start date: 01/03/12 2:17:00, Stop date: 01/03/12 2:17:00 Zofran 4 mg, 2 mL, Route: IVP, Drug form: 01/02/2012 01/02/2012 Completed INJ, ONCE, PRN Nausea, Start date: 01/02/12 22:23:00 potassium chloride 40 mEq, 2 tab, Route: PO, Drug 01/03/2012 01/03/2012 Completed form: ERTAB, ONCE, Start date: 01/03/12 19:38:00, Stop date: 01/03/12 19:38:00 morphine Sulfate 4 mg, 2 mL, Route: IVP, Drug form: 01/02/2012 01/02/2012 Completed INJ, ONCE, Start date: 01/02/12 22:22:00, Stop date: 01/02/12 22:22:00 potassium chloride 40 mEq, 2 tab, Route: PO, Drug 01/03/2012 01/03/2012 Completed form: ERTAB, ONCE, Start date: 01/03/12 2:16:00, Stop date: 01/03/12 2:16:00 Ambien 5 mg, 1 tab, Route: PO, Drug form: 01/02/2012 01/03/2012 Discontinued TAB, Bedtime, PRN Insomnia, Start date: 01/02/12 23:29:00, Duration: 30 day, Stop date: 02/01/12 23:28:00 Tylenol 650 mg, 2 tab, Route: PO, Drug 01/02/2012 01/03/2012 Discontinued form: TAB, Q6H, PRN Pain, Start date: 01/02/12 23:29:00, Duration: 30 day, Stop date: 02/01/12 23:28:00 Procardia XL 30 mg, 1 tab, Route: PO, Drug form: 01/03/2012 01/03/2012 Discontinued ERTAB, Daily, Start date: 01/03/12 9:00:00, Duration: 30 day, Stop date: 02/01/12 9:00:00 lisinopril 20 mg, 1 tab, Route: PO, Drug form: 01/03/2012 01/03/2012 Discontinued TAB, Daily, PLEASE GIVE FIRST DOSE NOW, Start date: 01/03/12 9:00:00, Duration: 30 day, Stop date: 02/01/12 9:00:00 K-Dur 20 oral 40 mEq, Route: PO, ONCE, Start 01/02/2012 01/02/2012 Completed tablet, extended date: 01/02/12 21:21:00, Stop date: release 01/02/12 21:21:00 potassium chloride 40 mEq, Route: IVPB, ONCE, 01/03/2012 01/03/2012 Deleted Priority: NOW, Start date: 01/03/12 8:37:00, Stop date: 01/03/12 8:37:00 Aldactone 50 mg, 1 tab, Route: PO, Drug form: 01/03/2012 01/03/2012 Discontinued TAB, BID, Start date: 01/03/12 9:25:00, Duration: 30 day, Stop date: 02/02/12 9:00:00 Procardia XL 30 mg 30 mg, 1 tab, PO, Daily, 01/02/2012 Ordered oral tablet, Substitution Allowed extended release aspirin 81 mg 486 mg, 6 tab, PO, Every Other Day, 01/02/2012 Ordered tablet, enteric Substitution Allowed coated lisinopril 20 mg 20 mg, 1 tab, PO, Daily, 01/02/2012 Ordered oral tablet Substitution Allowed aspirin 325 mg 2 tab, Route: PO, Drug form: TAB, 01/02/2012 01/02/2012 Completed tablet ONCE, Priority: STAT, Start date: 01/02/12 20:47:00, Stop date: 01/02/12 20:47:00 Saline Flush 0.9% 5 ml, Route: IVP, Drug Form: INJ, 01/02/2012 01/03/2012 Discontinued PRN, PRN Line Flush, Start date: 01/02/12 23:12:00, Duration: 30 day, Stop date: 02/01/12 23:11:00 Saline Flush 0.9% 5 ml, Route: IVP, Drug Form: INJ, 01/03/2012 01/03/2012 Discontinued Q12H, Start date: 01/03/12 9:00:00, Duration: 30 day, Stop date: 02/01/12 21:00:00 potassium chloride 40 mEq, 2 tab, Route: PO, Drug 01/03/2012 01/03/2012 Completed form: ERTAB, ONCE, Priority: NOW, Start date: 01/03/12 8:37:00, Stop date: 01/03/12 8:37:00 aspirin 325 mg 325 mg, 1 tab, Route: PO, Drug 01/03/2012 01/03/2012 Discontinued tablet form: TAB, Daily, Start date: 01/03/12 9:00:00, Duration: 30 day, Stop date: 02/01/12 9:00:00 nitroglycerin SL Tab 0.4 mg, 1 tab, Route: SL, Drug 01/02/2012 01/03/2012 Discontinued form: TAB, Q5Min, PRN Chest Pain, Start date: 01/02/12 23:12:00, Duration: 3 doses or times, Stop date: Limited # of times lisinopril 20 mg, 1 tab, Route: PO, Drug form: 01/02/2012 01/02/2012 Completed TAB, ONCE, Start date: 01/02/12 23:34:00, Stop date: 01/02/12 23:34:00 nitroglycerin 0.4 mg 0.4 mg, 1 tab, Route: SL, Drug 01/02/2012 01/03/2012 Discontinued sublingual tablet form: TAB, Q5Min, PRN Chest Pain, Start date: 01/02/12 23:17:00, Duration: 30 day, Stop date: 02/01/12 23:16:00 atropine 0.5 mg, 5 mL, Route: IVP, Drug 01/02/2012 01/03/2012 Discontinued form: INJ, PRN, PRN Bradycardia, Start date: 01/02/12 23:16:00, Duration: 30 day, Stop date: 02/01/12 23:15:00 potassium chloride 20 mEq, 100 mL, Route: IVPB, Drug 01/03/2012 01/03/2012 Completed form: INJ, Q2H, Start date: 01/03/12 9:00:00, Duration: 2 doses or times, Stop date: 01/03/12 11:00:00 lisinopril 20 mg, Route: PO, ONCE, Start date: 01/02/2012 01/02/2012 Completed 01/02/12 21:39:00, Stop date: 01/02/12 21:39:00 Aldactone 50 mg oral 50 mg, 1 tab, PO, BID, 30 tab, 01/03/2012 Ordered tablet Substitution Allowed, TAB clonidine 0.2 mg 0.2 mg, 1 tab, Route: PO, Drug 01/02/2012 01/03/2012 Discontinued oral tablet form: TAB, Q4H, PRN See Nurse's Notes, Start date: 01/02/12 23:32:00, Duration: 30 day, Stop date: 02/01/12 23:31:00, FOR SBP>180 Vital Signs Most recent to oldest [Reference Range]: 1 2 3 Height 175.26 cm (01/02/2012 23:34:00) 175.26 cm (01/02/2012 17:37:00) Temperature Oral [96.4-99.1 DegF] 99.1 DegF (01/03/2012 19:30:00) 98.4 DegF (01/03/2012 16:00:00) 98.4 DegF (01/03/2012 11:30:00) Systolic Blood Pressure [90-140 mmHg] 143 mmHg *HI* (01/03/2012 19:30:00) 158 mmHg *HI* (01/03/2012 16:00:00) 136 mmHg (01/03/2012 11:30:00) Diastolic Blood Pressure [60-90 mmHg] 93 mmHg *HI* (01/03/2012 19:30:00) 98 mmHg *HI* (01/03/2012 16:00:00) 90 mmHg (01/03/2012 11:30:00) Respiratory Rate [14-20 BRMIN] 20 BRMIN (01/03/2012 19:30:00) 20 BRMIN (01/03/2012 16:00:00) 20 BRMIN (01/03/2012 11:30:00) Peripheral Pulse Rate [60-100 bpm] 78 bpm (01/03/2012 19:30:00) 78 bpm (01/03/2012 16:00:00) 69 bpm (01/03/2012 11:30:00) Weight 109.091 kg (01/02/2012 23:34:00) 109.091 kg (01/02/2012 17:37:00) Results URINALYSIS Most recent to oldest [Reference Range]: 1 2 3 UA pH [5.0-8.0] 7.0 (01/03/2012 12:40:00) CHEMISTRY Most recent to oldest [Reference Range]: 1 2 3 Sodium Lvl [135-145 mEq/L] 144 mEq/L (01/03/2012 01:38:00) 141 mEq/L (01/02/2012 19:38:00) Potassium Lvl [3.5-5.1 mEq/L] 3.2 mEq/L *LOW* (01/03/2012 17:28:00) 2.7 mEq/L 1 *CRIT* (01/03/2012 07:49:00) 2.9 mEq/L 2 *CRIT* (01/03/2012 01:38:00) Chloride Lvl [95-109 mEq/L] 100 mEq/L (01/03/2012 01:38:00) 99 mEq/L (01/02/2012 19:38:00) CO2 [24-32 mEq/L] 34 mEq/L *HI* (01/03/2012 01:38:00) 33 mEq/L *HI* (01/02/2012:38:00) AGAP [10.0-20.0 mEq/L] 12.9 mEq/L (01/03/2012 01:38:00) 11.5 mEq/L (01/02/2012:38:00) Creatinine Lvl [0.5-1.4 mg/dL] 0.9 mg/dL (01/03/2012 01:38:00) 1.0 mg/dL (01/02/2012:38:00) BUN [7-22 mg/dL] 13 mg/dL (01/03/2012:38:00) 15 mg/dL (01/02/2012:38:00) B/C Ratio [6-25] 15 (01/02/2012:38:00) Glucose Lvl [70-99 mg/dL] 114 mg/dL 3 *HI* (01/03/2012:38:00) 171 mg/dL 4 *HI* (01/02/2012 19:38:00) Total Protein [6.4-8.4 g/dL] 8.1 g/dL (01/02/2012:38:00) Albumin Lvl [3.5-5.0 g/dL] 4.1 g/dL (01/02/2012:38:00) Globulin [2.0-4.0 g/dL] 4.0 g/dL (01/02/2012:38:00) A/G Ratio [0.7-1.6] 1.0 (01/02/2012:38:00) Calcium Lvl [8.5-10.5 mg/dL] 8.8 mg/dL (01/03/2012 01:38:00) 8.7 mg/dL (01/02/2012:38:00) ALT [0-65 U/L] 103 U/L *HI* (01/02/2012 19:38:00) AST [0-37 U/L] 40 U/L *HI* (01/02/2012 19:38:00) Alk Phos [39-136 U/L] 61 U/L (01/02/2012 19:38:00) Bili Total [0.2-1.3 mg/dL] 0.4 mg/dL (01/02/2012 19:38:00) Lipase Lvl [73-393 U/L] 118 U/L (01/02/2012 19:38:00) Total CK [12-191 U/L] 144 U/L (01/03/2012 07:49:00) 171 U/L (01/03/2012 01:38:00) 203 U/L *HI* (01/02/2012 19:38:00) CK MB [0.5-3.6 ng/mL] 2.0 ng/mL (01/03/2012 07:49:00) 1.8 ng/mL (01/03/2012 01:38:00) 2.3 ng/mL (01/02/2012:38:00) CK MB Index [0.0-2.5] 1.4 (01/03/2012 07:49:00) 1.1 (01/03/2012 01:38:00) 1.1 (01/02/2012:38:00) Troponin-I [0.00-0.40 ng/mL] 0.17 ng/mL (01/03/2012 07:49:00) 0.20 ng/mL (01/03/2012 01:38:00) 0.20 ng/mL (01/02/2012 19:38:00) BNP [<=100 pg/mL] 38 pg/mL 5 (01/02/2012 19:38:00) CHD Risk [4.00-7.30] 5.41 (01/03/2012 01:38:00) Chol [120-200 mg/dL] 157 mg/dL (01/03/2012 01:38:00) Trig [0-200 mg/dL] 286 mg/dL *HI* (01/03/2012 01:38:00) HDL [>=35 mg/dL] 29 mg/dL *LOW* (01/03/2012:38:00) LDL [0-129 mg/dL] 71 mg/dL (01/03/2012 01:38:00) U Sodium 112 mEq/L 6 *NA* (01/03/2012 12:40:00) U Potassium 62.5 mEq/L 7 *NA* (01/03/2012 12:40:00) 1Result Comment: Critical Result(s) called to annia at 01/03/2012 8:28 by hb. Read back OK. 2Result Comment: Critical Result(s) called to fransisco at 01/03/2012 2:03 byemw. Read back OK. 3Interpretive Data: Adult reference range values reflect the clinical guidelinesof the [place] [employer]. 4Interpretive Data: Adult reference range values reflect the clinical guidelinesof the [place] [employer]. 5Interpretive Data: Elevated results are in line with increasing severity of congestive heart failure. Minor elevations between 100 and 300 may be seen with Myocardial Ischemia, Sodium retaining drugs, and compensated/treated heart failure. 6Interpretive Data: No established reference ranges. 7Interpretive Data: No established reference ranges. HEMATOLOGY Most recent to oldest [Reference Range]: 1 2 3 WBC [3.7-10.4 K/CMM] 9.6 K/CMM (01/03/2012 01:38:00) 11.1 K/CMM *HI* (01/02/2012 19:38:00) RBC [4.70-6.10 M/CMM] 4.75 M/CMM (01/03/2012 01:38:00) 4.87 M/CMM (01/02/2012 19:38:00) Hgb [14.0-18.0 g/dL] 14.7 g/dL (01/03/2012 01:38:00) 15.0 g/dL (01/02/2012 19:38:00) Hct [42.0-54.0 %] 43.1 % (01/03/2012 01:38:00) 44.0 % (01/02/2012 19:38:00) MCV [80.0-94.0 fL] 90.6 fL (01/03/2012 01:38:00) 90.3 fL (01/02/2012 19:38:00) MCH [27.0-31.0 pg] 31.0 pg (01/03/2012 01:38:00) 30.8 pg (01/02/2012 19:38:00) MCHC [32.0-36.0 g/dL] 34.2 g/dL (01/03/2012 01:38:00) 34.1 g/dL (01/02/2012 19:38:00) RDW [11.5-14.5 %] 12.9 % (01/03/2012 01:38:00) 13.5 % (01/02/2012 19:38:00) Platelet [133-450 K/CMM] 259 K/CMM (01/03/2012 01:38:00) 267 K/CMM (01/02/2012 19:38:00) MPV [7.4-10.4 fL] 9.2 fL (01/03/2012 01:38:00) 9.5 fL (01/02/2012 19:38:00) Segs [45.0-75.0 %] 64.7 % (01/03/2012 01:38:00) 76.7 % *HI* (01/02/2012 19:38:00) Lymphocytes [20.0-40.0 %] 23.8 % (01/03/2012 01:38:00) 17.7 % *LOW* (01/02/2012 19:38:00) Monocytes [2.0-12.0 %] 8.6 % (01/03/2012 01:38:00) 4.0 % (01/02/2012 19:38:00) Eosinophils [0.0-4.0 %] 2.4 % (01/03/2012 01:38:00) 1.2 % (01/02/2012 19:38:00) Basophils [0.0-1.0 %] 0.5 % (01/03/2012 01:38:00) 0.4 % (01/02/2012 19:38:00) Segs-Bands # [1.5-8.1 K/CMM] 6.2 K/CMM (01/03/2012 01:38:00) 8.5 K/CMM *HI* (01/02/2012 19:38:00) Lymphocytes # [1.0-5.5 K/CMM] 2.3 K/CMM (01/03/2012 01:38:00) 2.0 K/CMM (01/02/2012 19:38:00) Monocytes # [0.0-0.8 K/CMM] 0.8 K/CMM (01/03/2012 01:38:00) 0.4 K/CMM (01/02/2012 19:38:00) Eosinophils # [0.0-0.5 K/CMM] 0.2 K/CMM (01/03/2012 01:38:00) 0.1 K/CMM (01/02/2012 19:38:00) Basophils # [0.0-0.2 K/CMM] 0.0 K/CMM (01/03/2012 01:38:00) 0.0 K/CMM (01/02/2012 19:38:00) PT [12.0-14.7 seconds] 13.4 seconds (01/02/2012 19:38:00) INR [0.85-1.17] 1.02 8 (01/02/2012 19:38:00) D-Dimer 0.56 ug/mL FEU 9 *NA* (01/02/2012 19:38:00) PTT [22.9-35.8 seconds] 32.3 seconds 10 (01/02/2012 19:38:00) 8Interpretive Data: RECOMMENDED RANGES FOR PROTIME INR: 2.0-3.0 for most medical and surgical thromboembolic states. 2.5-3.5 for artificial heart valves and recurrent embolism.INR SHOULD BE USED ONLY FOR PATIENTS ON STABLE ANTICOAGULANT THERAPY. 9Interpretive Data: In DIC, quantitative D-Dimer is generally greater than 0.66 ug/mL FEU. Values of quantitative D-Dimer less than 0.40 ug/mL FEU have been reported to be associated with a low probability of deep vein thrombosis/pulmonary embolism. This test alone should not be used to rule out DVT/PE. 10Interpretive Data: Heparin Therapeutic Range: 57 - 92 Seconds
--- OUTSIDE RECORDS SUMMARY | 2018-12-24 07:02 | XMS REPORT | Continuity of Care Document ---
Author Author [facility] Interface Address Unknown Phone Unavailable Problems Problem Status Onset Date Classification Date Reported Comments Source CHEST PAIN Active 12/30/2011 [facility] Chest pain Active Problem 01/05/2012 [facility] Hypertension Active Problem 01/05/2012 [facility] Medications Medication Details Route Status Patient Instructions Ordering Provider Order Date Source Aldactone 50 mg oral tablet 50 mg, 1 tab, PO, BID, 30 tab, Substitution Allowed, TAB PO Active [facility] 01/04/2012 [facility] potassium chloride 40 mEq, 2 tab, Route: PO, Drug form: ERTAB, ONCE, Start date: 01/03/12 19:38:00, Stop date: 01/03/12 19:38:00 PO No Longer Active [facility] 01/04/2012 [facility] Aldactone 50 mg, 1 tab, Route: PO, Drug form: TAB, BID, Start date: 01/03/12 9:25:00, Duration: 30 day, Stop date: 02/02/12 9:00:00 PO No Longer Active [facility] 01/03/2012 [facility] Procardia XL 30 mg, 1 tab, Route: PO, Drug form: ERTAB, Daily, Start date: 01/03/12 9:00:00, Duration: 30 day, Stop date: 02/01/12 9:00:00 PO No Longer Active [facility] 01/03/2012 [facility] lisinopril 20 mg, 1 tab, Route: PO, Drug form: TAB, Daily, PLEASE GIVE FIRST DOSE NOW, Start date: 01/03/12 9:00:00, Duration: 30 day, Stop date: 02/01/12 9:00:00 PO No Longer Active [facility] 01/03/2012 [facility] Saline Flush 0.9% 5 ml, Route: IVP, Drug Form: INJ, Q12H, Start date: 01/03/12 9:00:00, Duration: 30 day, Stop date: 02/01/12 21:00:00 IVP No Longer Active [facility] 01/03/2012 [facility] aspirin 325 mg tablet 325 mg, 1 tab, Route: PO, Drug form: TAB, Daily, Start date: 01/03/12 9:00:00, Duration: 30 day, Stop date: 02/01/12 9:00:00 PO No Longer Active [facility] 01/03/2012 [facility] potassium chloride 20 mEq, 100 mL, Route: IVPB, Drug form: INJ, Q2H, Start date: 01/03/12 9:00:00, Duration: 2 doses or times, Stop date: 01/03/12 11:00:00 IVPB No Longer Active [facility] 01/03/2012 [facility] potassium chloride 40 mEq, Route: IVPB, ONCE, Priority: NOW, Start date: 01/03/12 8:37:00, Stop date: 01/03/12 8:37:00 IVPB No Longer Active [facility] 01/03/2012 [facility] potassium chloride 40 mEq, 200 mL, Route: IV, Drug form: INJ, ONCE, Start date: 01/03/12 2:17:00, Stop date: 01/03/12 2:17:00 IV No Longer Active [facility] 01/03/2012 [facility] potassium chloride 40 mEq, 2 tab, Route: PO, Drug form: ERTAB, ONCE, Start date: 01/03/12 2:16:00, Stop date: 01/03/12 2:16:00 PO No Longer Active [facility] 01/03/2012 [facility] lisinopril 20 mg, 1 tab, Route: PO, Drug form: TAB, ONCE, Start date: 01/02/12 23:34:00, Stop date: 01/02/12 23:34:00 PO No Longer Active [facility] 01/03/2012 [facility] clonidine 0.2 mg oral tablet 0.2 mg, 1 tab, Route: PO, Drug form: TAB, Q4H, PRN See Nurse's Notes, Start date: 01/02/12 23:32:00, Duration: 30 day, Stop date: 02/01/12 23:31:00, FOR SBP>180 PO No Longer Active [facility] 01/03/2012 [facility] Ambien 5 mg, 1 tab, Route: PO, Drug form: TAB, Bedtime, PRN Insomnia, Start date: 01/02/12 23:29:00, Duration: 30 day, Stop date: 02/01/12 23:28:00 PO No Longer Active [facility] 01/03/2012 [facility] Tylenol 650 mg, 2 tab, Route: PO, Drug form: TAB, Q6H, PRN Pain, Start date: 01/02/12 23:29:00, Duration: 30 day, Stop date: 02/01/12 23:28:00 PO No Longer Active [facility] 01/03/2012 [facility] nitroglycerin 0.4 mg sublingual tablet 0.4 mg, 1 tab, Route: SL, Drug form: TAB, Q5Min, PRN Chest Pain, Start date: 01/02/12 23:17:00, Duration: 30 day, Stop date: 02/01/12 23:16:00 SL No Longer Active [facility] 01/03/2012 [facility] atropine 0.5 mg, 5 mL, Route: IVP, Drug form: INJ, PRN, PRN Bradycardia, Start date: 01/02/12 23:16:00, Duration: 30 day, Stop date: 02/01/12 23:15:00 IVP No Longer Active [facility] 01/03/2012 [facility] Saline Flush 0.9% 5 ml, Route: IVP, Drug Form: INJ, PRN, PRN Line Flush, Start date: 01/02/12 23:12:00, Duration: 30 day, Stop date: 02/01/12 23:11:00 IVP No Longer Active [facility] 01/03/2012 [facility] nitroglycerin SL Tab 0.4 mg, 1 tab, Route: SL, Drug form: TAB, Q5Min, PRN Chest Pain, Start date: 01/02/12 23:12:00, Duration: 3 doses or times, Stop date: Limited # of times SL No Longer Active [facility] 01/03/2012 [facility] Zofran 4 mg, 2 mL, Route: IVP, Drug form: INJ, ONCE, PRN Nausea, Start date: 01/02/12 22:23:00 IVP No Longer Active [facility] 01/03/2012 [facility] morphine Sulfate 4 mg, 2 mL, Route: IVP, Drug form: INJ, ONCE, Start date: 01/02/12 22:22:00, Stop date: 01/02/12 22:22:00 IVP No Longer Active [facility] 01/03/2012 [facility] lisinopril 20 mg, Route: PO, ONCE, Start date: 01/02/12 21:39:00, Stop date: 01/02/12 21:39:00 PO No Longer Active [facility] 01/03/2012 [facility] aspirin 81 mg tablet, enteric coated 486 mg, 6 tab, PO, Every Other Day, Substitution Allowed PO Active 01/03/2012 [facility] Procardia XL 30 mg oral tablet, extended release 30 mg, 1 tab, PO, Daily, Substitution Allowed PO Active 01/03/2012 [facility] lisinopril 20 mg oral tablet 20 mg, 1 tab, PO, Daily, Substitution Allowed PO Active 01/03/2012 [facility] K-Dur 20 oral tablet, extended release 40 mEq, Route: PO, ONCE, Start date: 01/02/12 21:21:00, Stop date: 01/02/12 21:21:00 PO No Longer Active [facility] 01/03/2012 [facility] aspirin 325 mg tablet 2 tab, Route: PO, Drug form: TAB, ONCE, Priority: STAT, Start date: 01/02/12 20:47:00, Stop date: 01/02/12 20:47:00 PO No Longer Active [facility] 01/03/2012 [facility] aspirin 325 mg tablet 325 mg, 1 tab, Route: PO, Drug form: TAB, ONCE, Priority: STAT, Start date: 01/02/12 19:30:00, Stop date: 01/02/12 19:30:00 PO No Longer Active [facility] 01/03/2012 [facility] Saline Flush 0.9% 5 ml, Route: IVP, Drug Form: INJ, PRN, PRN Line Flush, Start date: 01/02/12 19:30:00, Duration: 24 hr, Stop date: 01/03/12 19:29:00 IVP No Longer Active [facility] 01/03/2012 [facility] Allergies, Adverse Reactions, Alerts Substance Category Reaction Severity Reaction type Status Date Reported Comments Source Immunizations Immunization Date Given Site Status Last Updated Comments Source Results Order Name Results Value Reference Range Date Interpretation Comments Source CHEMISTRY Potassium Lvl 3.2 meq/L 3.5 - 5.1 01/03/2012 LOW [facility] CHEMISTRY U Sodium 112 meq/L 01/03/2012 NA 6Interpretive Data: No established reference ranges. [facility] CHEMISTRY U Potassium 62.5 meq/L 01/03/2012 NA 7Interpretive Data: No established reference ranges. [facility] URINALYSIS UA pH 7.0 5.0 - 8.0 01/03/2012 Normal [facility] CHEMISTRY Total CK 144 U/L 12 - 191 01/03/2012 Normal [facility] CHEMISTRY Troponin-I 0.17 ng/mL 0.00 - 0.40 01/03/2012 Normal [facility] CHEMISTRY CK MB Index 1.4 0.0 - 2.5 01/03/2012 Normal [facility] CHEMISTRY CK MB 2.0 ng/mL 0.5 - 3.6 01/03/2012 Normal [facility] CHEMISTRY Potassium Lvl 2.7 meq/L 3.5 - 5.1 01/03/2012 CRIT 1Result Comment: Critical Result(s) called to annia at 01/03/2012 8:28 by hb. Read back OK. [facility] CHEMISTRY Troponin-I 0.20 ng/mL 0.00 - 0.40 01/03/2012 Normal [facility] CHEMISTRY LDL 71 mg/dL 0 - 129 01/03/2012 Normal [facility] CHEMISTRY Chol 157 mg/dL 120 - 200 01/03/2012 Normal [facility] CHEMISTRY HDL 29 mg/dL >=35 01/03/2012 LOW [facility] CHEMISTRY CHD Risk 5.41 4.00 - 7.30 01/03/2012 Normal [facility] CHEMISTRY Trig 286 mg/dL 0 - 200 01/03/2012 HI [facility] CHEMISTRY Total CK 171 U/L 12 - 191 01/03/2012 Normal [facility] CHEMISTRY CK MB Index 1.1 0.0 - 2.5 01/03/2012 Normal [facility] CHEMISTRY CK MB 1.8 ng/mL 0.5 - 3.6 01/03/2012 Normal [facility] CHEMISTRY Creatinine Lvl 0.9 mg/dL 0.5 - 1.4 01/03/2012 Normal [facility] CHEMISTRY BUN 13 mg/dL 7 - 22 01/03/2012 Normal [facility] CHEMISTRY Glucose Lvl 114 mg/dL 70 - 99 01/03/2012 HI 3Interpretive Data: Adult reference range values reflect the clinical guidelinesof the [place] [employer]. [facility] CHEMISTRY AGAP 12.9 meq/L 10.0 - 20.0 01/03/2012 Normal [facility] CHEMISTRY Calcium Lvl 8.8 mg/dL 8.5 - 10.5 01/03/2012 Normal [facility] CHEMISTRY CO2 34 meq/L 24 - 32 01/03/2012 HI [facility] CHEMISTRY Sodium Lvl 144 meq/L 135 - 145 01/03/2012 Normal [facility] CHEMISTRY Potassium Lvl 2.9 meq/L 3.5 - 5.1 01/03/2012 CRIT 2Result Comment: Critical Result(s) called to fransisco at 01/03/2012 2:03 byemw. Read back OK. [facility] CHEMISTRY Chloride Lvl 100 meq/L 95 - 109 01/03/2012 Normal [facility] HEMATOLOGY Monocytes # 0.8 K/CMM 0.0 - 0.8 01/03/2012 Normal [facility] HEMATOLOGY Eosinophils # 0.2 K/CMM 0.0 - 0.5 01/03/2012 Normal [facility] HEMATOLOGY Lymphocytes # 2.3 K/CMM 1.0 - 5.5 01/03/2012 Normal [facility] HEMATOLOGY Basophils # 0.0 K/CMM 0.0 - 0.2 01/03/2012 Normal [facility] HEMATOLOGY Lymphocytes 23.8 % 20.0 - 40.0 01/03/2012 Normal [facility] HEMATOLOGY Monocytes 8.6 % 2.0 - 12.0 01/03/2012 Normal [facility] HEMATOLOGY Segs-Bands # 6.2 K/CMM 1.5 - 8.1 01/03/2012 Normal [facility] HEMATOLOGY Eosinophils 2.4 % 0.0 - 4.0 01/03/2012 Normal [facility] HEMATOLOGY Basophils 0.5 % 0.0 - 1.0 01/03/2012 Normal [facility] HEMATOLOGY Segs 64.7 % 45.0 - 75.0 01/03/2012 Normal [facility] HEMATOLOGY MPV 9.2 fL 7.4 - 10.4 01/03/2012 Normal [facility] HEMATOLOGY RDW 12.9 % 11.5 - 14.5 01/03/2012 Normal [facility] HEMATOLOGY Platelet 259 K/CMM 133 - 450 01/03/2012 Normal [facility] HEMATOLOGY Hct 43.1 % 42.0 - 54.0 01/03/2012 Normal [facility] HEMATOLOGY MCV 90.6 fL 80.0 - 94.0 01/03/2012 Normal [facility] HEMATOLOGY Hgb 14.7 g/dL 14.0 - 18.0 01/03/2012 Normal [facility] HEMATOLOGY MCHC 34.2 g/dL 32.0 - 36.0 01/03/2012 Normal [facility] HEMATOLOGY MCH 31.0 pg 27.0 - 31.0 01/03/2012 Normal [facility] HEMATOLOGY RBC 4.75 M/CMM 4.70 - 6.10 01/03/2012 Normal [facility] HEMATOLOGY WBC 9.6 K/CMM 3.7 - 10.4 01/03/2012 Normal [facility] CHEMISTRY Lipase Lvl 118 U/L 73 - 393 01/03/2012 Normal [facility] CHEMISTRY Troponin-I 0.20 ng/mL 0.00 - 0.40 01/03/2012 Normal [facility] CHEMISTRY Total CK 203 U/L 12 - 191 01/03/2012 HI [facility] CHEMISTRY Albumin Lvl 4.1 g/dL 3.5 - 5.0 01/03/2012 Normal [facility] CHEMISTRY AGAP 11.5 meq/L 10.0 - 20.0 01/03/2012 Normal [facility] CHEMISTRY Calcium Lvl 8.7 mg/dL 8.5 - 10.5 01/03/2012 Normal [facility] CHEMISTRY Chloride Lvl 99 meq/L 95 - 109 01/03/2012 Normal [facility] CHEMISTRY CO2 33 meq/L 24 - 32 01/03/2012 [facility] CHEMISTRY B/C Ratio 15 6 - 25 01/03/2012 Normal [facility] CHEMISTRY Creatinine Lvl 1.0 mg/dL 0.5 - 1.4 01/03/2012 Normal [facility] CHEMISTRY Sodium Lvl 141 meq/L 135 - 145 01/03/2012 Normal [facility] CHEMISTRY Glucose Lvl 171 mg/dL 70 - 99 01/03/2012 [place] 4Interpretive Data: Adult reference range values reflect the clinical guidelinesof the [place] [employer]. [facility] CHEMISTRY BUN 15 mg/dL 7 - 22 01/03/2012 Normal [facility] CHEMISTRY A/G Ratio 1.0 0.7 - 1.6 01/03/2012 Normal [facility] CHEMISTRY AST 40 U/L 0 - 37 01/03/2012 [facility] CHEMISTRY Globulin 4.0 g/dL 2.0 - 4.0 01/03/2012 Normal [facility] CHEMISTRY Total Protein 8.1 g/dL 6.4 - 8.4 01/03/2012 Normal [facility] CHEMISTRY ALT 103 U/L 0 - 65 01/03/2012 [facility] CHEMISTRY Alk Phos 61 U/L 39 - 136 01/03/2012 Normal [facility] CHEMISTRY Bili Total 0.4 mg/dL 0.2 - 1.3 01/03/2012 Normal [facility] CHEMISTRY CK MB 2.3 ng/mL 0.5 - 3.6 01/03/2012 Normal [facility] CHEMISTRY BNP 38 pg/mL <=100 01/03/2012 Normal 5Interpretive Data: Elevated results are in line with increasing severity of congestive heart failure. Minor elevations between 100 and 300 may be seen with Myocardial Ischemia, Sodium retaining drug s, and compensated/treated heart failure. [facility] CHEMISTRY CK MB Index 1.1 0.0 - 2.5 01/03/2012 Normal [facility] HEMATOLOGY INR 1.02 0.85 - 1.17 01/03/2012 Normal 8Interpretive Data: RECOMMENDED RANGES FOR PROTIME INR: 2.0-3.0 for most medical and surgical thromboembolic states. 2.5-3.5 for artificial heart valves and recurrent embolism.INR SHOULD BE USED ONLY FOR PATIENTS ON STABLE ANTICOAGULANT THERAPY. [facility] HEMATOLOGY PT 13.4 s 12.0 - 14.7 01/03/2012 Normal [facility] PTT 32.3 s 22.9 - 35.8 01/03/2012 Normal 10Interpretive Data: Heparin Therapeutic Range: 57 - 92 Seconds [facility] HEMATOLOGY RBC 4.87 M/CMM 4.70 - 6.10 01/03/2012 Normal [facility] Hgb 15.0 g/dL 14.0 - 18.0 01/03/2012 Normal [facility] Hct 44.0 % 42.0 - 54.0 01/03/2012 Normal [facility] MCV 90.3 fL 80.0 - 94.0 01/03/2012 Normal [facility] MCH 30.8 pg 27.0 - 31.0 01/03/2012 Normal [facility] MCHC 34.1 g/dL 32.0 - 36.0 01/03/2012 Normal [facility] RDW 13.5 % 11.5 - 14.5 01/03/2012 Normal [facility] WBC 11.1 K/CMM 3.7 - 10.4 01/03/2012 HI [facility] HEMATOLOGY MPV 9.5 fL 7.4 - 10.4 01/03/2012 Normal [facility] Platelet 267 K/CMM 133 - 450 01/03/2012 Normal [facility] D-Dimer 0.56 ug/mL FEU 01/03/2012 NA 9Interpretive Data: In DIC, quantitative D- Dimer is generally greater than 0.66 ug/mL FEU. Values of quantitative D-Dimer less than 0.40 ug/mL FEU have been reported to be associated with a low probabil ity of deep vein thrombosis/pulmonary embolism. This test alone should not be used to rule out DVT/PE. [facility] HEMATOLOGY Monocytes # 0.4 K/CMM 0.0 - 0.8 01/03/2012 Normal [facility] HEMATOLOGY Basophils # 0.0 K/CMM 0.0 - 0.2 01/03/2012 Normal [facility] HEMATOLOGY Eosinophils # 0.1 K/CMM 0.0 - 0.5 01/03/2012 Normal [facility] HEMATOLOGY Lymphocytes 17.7 % 20.0 - 40.0 01/03/2012 LOW [facility] HEMATOLOGY Segs 76.7 % 45.0 - 75.0 01/03/2012 HI [facility] HEMATOLOGY Monocytes 4.0 % 2.0 - 12.0 01/03/2012 Normal [facility] HEMATOLOGY Lymphocytes # 2.0 K/CMM 1.0 - 5.5 01/03/2012 Normal [facility] HEMATOLOGY Eosinophils 1.2 % 0.0 - 4.0 01/03/2012 Normal [facility] HEMATOLOGY Segs-Bands # 8.5 K/CMM 1.5 - 8.1 01/03/2012 HI [facility] HEMATOLOGY Basophils 0.4 % 0.0 - 1.0 01/03/2012 Normal [facility] Vital Signs Vital Sign Value Date Comments Source Heart Rate 78 01/04/2012 [facility] Respitory Rate 20 01/04/2012 [facility] Diastolic (mm Hg) 93 01/04/2012 [facility] Systolic (mm Hg) 143 01/04/2012 [facility] Temperature Oral (F) 99.1 F 01/04/2012 [facility] Systolic (mm Hg) 158 01/03/2012 [facility] Respitory Rate 20 01/03/2012 [facility] Heart Rate 78 01/03/2012 [facility] Diastolic (mm Hg) 98 01/03/2012 [facility] Temperature Oral (F) 98.4 F 01/03/2012 [facility] Heart Rate 69 01/03/2012 [facility] Diastolic (mm Hg) 90 01/03/2012 [facility] Respitory Rate 20 01/03/2012 [facility] Systolic (mm Hg) 136 01/03/2012 [facility] Temperature Oral (F) 98.4 F 01/03/2012 [facility] Height 175.26 cm 01/03/2012 [facility] Weight 109.091 01/03/2012 [facility] Height 175.26 cm 01/02/2012 [facility] Weight 109.091 01/02/2012 [facility] Encounters Location Location Details Encounter Type Encounter Number Reason For Visit Attending Provider ADM Date DC Date Status Source [facility] OU [id number] CHEST PAIN MARCIAL RENEE 01/02/2012 01/03/2012 Active [facility] Procedures Procedure Code Date Perfomer Comments Source
[2018-12-24 07:17] VITALS: BP 157/117
--- NOTE | 2018-12-24 08:28 | NUR ---
0754-Pt to E3 for JERSON 0756-Dr Saucedo arrived 0757-Time out 0758-Hurricaine spray to pts throat by aviation electronics technician 0800-JERSON probe inserted 08-Bubble study done 0811-JERSON probe out 0815-out of room 0818-report given to ROSA Oliveros in recovery
[2018-12-24 08:38] LABS: ANION GAP 13.1 mmol/L (8-16); BLOOD UREA NITROGEN 21 mg/dL (7-26); BUN/CREATININE RATIO 18 (6-25); CALCIUM 9.5 mg/dL (8.4-10.2); CARBON DIOXIDE 23 mmol/L (22-29); CHLORIDE 100 mmol/L (98-107); CREATININE, SERUM 1.16 mg/dL (0.72-1.25); EST GLOMERULAR FILTRATION RATE > 60 ML/MIN (60-); GLUCOSE 350 mg/dL (74-118); POTASSIUM 4.1 mmol/L (3.5-5.1); SODIUM 132 mmol/L (136-145)
[2018-12-24 10:15] VITALS: BP 132/84
== END | disposition home or self-care (01) ==
LOC: CATH LAB 06:59 → EDSTATUS 07:00
PROVIDERS: ATTEND Internal Medicine
DX: I48.91 Unspecified atrial fibrillation (principal); I25.10 Atherosclerotic heart disease of native coronary artery without angina pectoris; I11.0 Hypertensive heart disease with heart failure; I50.22 Chronic systolic (congestive) heart failure; E11.9 Type 2 diabetes mellitus without complications; E78.5 Hyperlipidemia, unspecified; K74.60 Unspecified cirrhosis of liver; Z01.812 Encounter for preprocedural laboratory examination; Z79.02 Long term (current) use of antithrombotics/antiplatelets; Z79.82 Long term (current) use of aspirin; Z82.49 Family history of ischemic heart disease and other diseases of the circulatory system
CPT/HCPCS: 36415 ×2; 80048 ×2; 80162; 82948; 85025; 85610; 93312; 93320; 93325; J2001; J2250; J2704; J7030